=== PATIENT | female | born 1960 | race Caucasian/White ===

== ENCOUNTER → 2017-06-12 17:55 | Outpatient (CLI) | payer BC, SELFPAY ==
--- NOTE | 2017-06-12 18:40 | CT_ITS ---
STUDY: CT ABDOMEN AND PELVIS WITH CONTRAST REASON FOR EXAM: Female, 57 years old. Left lower quadrant pain RADIATION DOSAGE (If Supplied By Facility): CTDIvol = ( 17.07 ) mGy, DLP = ( 1343.02 ) mGycm TECHNIQUE: Transaxial images were obtained from the dome of the diaphragm to the symphysis pubis without oral contrast. 100ML ml of Isovue 300 contrast was administered. Sagittal and coronal images were reconstructed. Individualized dose optimization techniques were used for this CT. COMPARISON: None. FINDINGS: The visualized lung bases are unremarkable. The visualized portions of the heart are within normal limits. Normal liver. Normal gallbladder and extrahepatic biliary system. Normal spleen. Normal pancreas. Normal bilateral adrenal glands. Normal right kidney. Normal left kidney. Normal visualized stomach. Normal small intestine. Focal inflammation of the distal descending colon possibly due to focal colitis or diverticulitis. . The appendix is visualized and appears normal. Normal abdominal aorta. Normal inferior vena cava. Normal retroperitoneum. Normal urinary bladder. Prominent right ovary is noted. Correlate with ultrasound of the pelvis if clinically needed. Normal abdominal wall. Normal osseous structures. CT/Abdomen/Pelvis WITH Contrast IMPRESSION: Focal colitis or diverticulitis of the distal descending colon. Electronically Signed: Yehuda Mckinney DO at 22:50 EST Tel [phone], Service support ,
[2017-06-12 18:57] LABS: AST(SGOT) 22 U/L (15-37); Alanine Aminotransfer ALT/SGPT 44 U/L (13-56); Albumin, Serum 3.7 g/dL (3.2-5.0); Alkaline Phosphatase 100 U/L (45-117); Anion Gap 9 (5-15); BUN 11 mg/dL (7-18); BUN/Creat Ratio 20.8 RATIO (10-20); Chloride 105 mmol/L (98-107); Creatinine, Serum 0.53 mg/dL (0.55-1.02); EST Glomerular Filtration Rate 126 mL/min (>60); Est Glom Filt Rate - Afr Amer 153 mL/min (>60); Globulin 3.6 g/dL (2.2-4.2); Glucose 107 mg/dL (74-106); Potassium 4.1 mmol/L (3.5-5.1); Protein, Total 7.3 g/dL (6.4-8.2); Sodium Level 137 mmol/L (136-145)
[2017-06-12 18:59] LABS: Internal QC Validated? YES +Cl - CLEAR BKGD; Monotest Negative (Negative)
[2017-06-12 19:16] LABS: Absolute Lymphocyte Count 2.49 X10^3/ul (0.83-4.51); Absolute Neutrophil Count 15.4 X10^3/uL (2.0-7.7); Basophil# 0.04 X10^3/uL; Basophil% 0.2 % (0-1); Differential Indicated SCAN CRITERIA MET; Eosinophil# 0.06 X10^3/uL; Eosinophils% 0.3 % (0-5); Hematocrit 40.9 % (37-47); Lymphocyte # 2.49 X10^3/ul (4.0); Lymphocyte % 12.6 % (19-41); Mean Corp Hgb Conc 34.2 g/gl (32-36); Mean Corpuscular Hgb 30.2 pg (27.0-32.0); Mean Corpuscular Volume 88.3 fL (81-99); Mean Platelet Vol. 10.2 fl (6.2-12.0); Monocyte# 1.66 X10^3/uL; Monocyte% 8.4 % (0-10); Neutrophil # 15.42 X10^3/uL (2.7-7.7); POSITIVE COUNT NO; POSITIVE DIFFERENTIAL YES; POSITIVE MORPHOLOGY NO; Platelet Count 276 K/mm3 (150-450); RBC Distribution Width CV 13.8 % (11.6-14.6); RBC Distribution Width SD 43.9 fl (35.1-43.9); Red Blood Count 4.63 M/mm3 (4.2-5.4); White Blood Count 19.8 K/mm3 (4.4-11.0)
[2017-06-12 19:49] LABS: Anisocytosis RARE; Platelet Estimate ADEQUATE (ADEQ); Toxic Granulation RARE
--- NOTE | 2017-06-12 20:50 | RAD_ITS ---
STUDY: X-RAY CHEST REASON FOR EXAM: Female, 57 years old. Fever TECHNIQUE: Frontal and lateral views COMPARISON: March 09, 2017 FINDINGS: The lungs are clear and expanded. There is no demonstrated pleural abnormality. Normal size heart. Normal mediastinum and gregorio. Normal visualized pulmonary arteries. Calcified aortic arch and descending thoracic aorta. Degenerative changes of the thoracic spine. Normal visualized ribs, clavicles, and shoulders. There is no demonstrated abnormality of the visualized soft tissue structures of the upper abdomen. RAD/Chest PA and Lateral IMPRESSION: Normal x-ray examination of the chest. Electronically Signed: Yehuda Mckinney DO at 21:20 EST Tel [phone], Service support ,
[2017-06-13 15:53] LABS: Pathologist Review Reviewed
== END ==
PROVIDERS: Family Provider Family Medicine Geriatric Medicine; PCP Family Medicine Geriatric Medicine; Visit Provider Family Medicine Geriatric Medicine
DX: R10.9 Unspecified abdominal pain (principal); R50.9 Fever, unspecified
CPT/HCPCS: 36415; 71046; 74177; 80053; 85025; 86308; 87040; 87070; 87205; 87633; Q9967

== ENCOUNTER → 2017-08-21 10:05 | Outpatient (CLI) | payer BC, SELFPAY ==
[2017-08-21 12:15] LABS: Absolute Lymphocyte Count 1.96 X10^3/ul (0.83-4.51); Absolute Neutrophil Count 7.9 X10^3/uL (2.0-7.7); Basophil# 0.05 X10^3/uL; Basophil% 0.5 % (0-1); Eosinophil# 0.16 X10^3/uL; Eosinophils% 1.4 % (0-5); Hematocrit 41.3 % (37-47); Lymphocyte # 1.96 X10^3/ul (4.0); Lymphocyte % 17.7 % (19-41); Mean Corp Hgb Conc 33.9 g/gl (32-36); Mean Corpuscular Hgb 30.7 pg (27.0-32.0); Mean Corpuscular Volume 90.6 fL (81-99); Mean Platelet Vol. 10.7 fl (6.2-12.0); Monocyte# 0.91 X10^3/uL; Monocyte% 8.2 % (0-10); Neutrophil # 7.92 X10^3/uL (2.7-7.7); Neutrophil % 71.7 % (47-70); Platelet Count 280 K/mm3 (150-450); RBC Distribution Width CV 13.7 % (11.6-14.6); RBC Distribution Width SD 45.4 fl (35.1-43.9); Red Blood Count 4.56 M/mm3 (4.2-5.4); White Blood Count 11.1 K/mm3 (4.4-11.0)
[2017-08-21 12:27] LABS: POSITIVE COUNT NO; POSITIVE DIFFERENTIAL NO; POSITIVE MORPHOLOGY NO; Vitamin D,25 Hydroxy 49.5 ng/mL (29.95-100.01)
[2017-08-21 12:30] LABS: ALB/GLOB Ratio 1.2 RATIO (0.9-2.4); AST(SGOT) 21 U/L (15-37); Alanine Aminotransfer ALT/SGPT 38 U/L (13-56); Albumin, Serum 3.9 g/dL (3.2-5.0); Alkaline Phosphatase 107 U/L (45-117); Anion Gap 8 (5-15); BUN 12 mg/dL (7-18); BUN/Creat Ratio 18.6 RATIO (10-20); Calcium,Total 8.9 mg/dL (8.5-10.1); Chloride 105 mmol/L (98-107); Creatinine, Serum 0.64 mg/dL (0.55-1.02); EST Glomerular Filtration Rate 100 mL/min (>60); Est Glom Filt Rate - Afr Amer 121 mL/min (>60); Globulin 3.3 g/dL (2.2-4.2); Glucose 97 mg/dL (74-106); Potassium 4.2 mmol/L (3.5-5.1); Protein, Total 7.2 g/dL (6.4-8.2); Sodium Level 139 mmol/L (136-145); Thyroid Stim Hormone (TSH) 1.32 uIU/mL (0.358-3.74)
[2017-08-22 14:06] LABS: Hep C Antibodies <0.1 s/co ratio (0.0-0.9)
== END ==
PROVIDERS: Family Provider Family Medicine Geriatric Medicine; PCP Family Medicine Geriatric Medicine; Visit Provider Family Medicine Geriatric Medicine
DX: Z13.89 Encounter for screening for other disorder (principal); E55.9 Vitamin D deficiency, unspecified; R53.83 Other fatigue
CPT/HCPCS: 36415; 80053; 82306; 84443; 85025; 86803

== ENCOUNTER → 2017-10-12 14:54 | Outpatient (CLI) | payer BC, SELFPAY ==
--- NOTE | 2017-10-12 14:59 | RAD_ITS ---
STUDY: X-RAY - RIGHT FOOT CLINICAL: Female, 57 years old. Pain. TECHNIQUE: 3 view(s) of the foot. COMPARISON: None. FINDINGS: There is a plantar calcaneal spur. Mild degenerative changes of the visualized subtalar, talonavicular, calcaneocuboid, tarsal and tarsometatarsal articulations. Normal metatarsi. There is degenerative arthrosis of the metatarsophalangeal joint of the hallux . Normal tibial and fibular sesamoid bones. Normal interphalangeal joint of the great toe. Normal phalanges of the great toe. Normal second through fifth metatarsophalangeal joints. Normal interphalangeal joints and phalanges of the lesser toes. The soft tissue structures are unremarkable. There is no demonstrated fracture. RAD/Foot min 3 Views IMPRESSION: No acute fracture or dislocation. Electronically Signed: Fernando Roman MD at 15:20 EDT , Service support ,
== END ==
LOC: RAD.FUTURE 14:55
PROVIDERS: Family Provider Family Medicine Geriatric Medicine; PCP Family Medicine Geriatric Medicine; Visit Provider Family Medicine Geriatric Medicine
DX: M25.571 Pain in right ankle and joints of right foot (principal)
CPT/HCPCS: 73630

== ENCOUNTER → 2018-03-01 11:23 | Outpatient (CLI) | payer BC, SELFPAY ==
[2018-03-01 12:39] LABS: Absolute Lymphocyte Count 2.21 X10^3/ul (0.83-4.51); Absolute Neutrophil Count 8.8 X10^3/uL (2.0-7.7); Basophil# 0.04 X10^3/uL; Basophil% 0.3 % (0-1); Eosinophil# 0.16 X10^3/uL; Eosinophils% 1.3 % (0-5); Hematocrit 42.7 % (37-47); Hemoglobin 14.3 g/dl (12.0-15.0); Lymphocyte # 2.21 X10^3/ul (4.0); Mean Corp Hgb Conc 33.5 g/gl (32-36); Mean Corpuscular Hgb 30.5 pg (27.0-32.0); Mean Platelet Vol. 10.9 fl (6.2-12.0); Monocyte# 1.02 X10^3/uL; Monocyte% 8.3 % (0-10); Neutrophil # 8.76 X10^3/uL (2.7-7.7); Neutrophil % 71.5 % (47-70); Platelet Count 290 K/mm3 (150-450); RBC Distribution Width CV 13.3 % (11.6-14.6); RBC Distribution Width SD 43.7 fl (35.1-43.9); Red Blood Count 4.69 M/mm3 (4.2-5.4); White Blood Count 12.3 K/mm3 (4.4-11.0)
[2018-03-01 12:44] LABS: POSITIVE COUNT NO; POSITIVE DIFFERENTIAL NO; POSITIVE MORPHOLOGY NO
[2018-03-01 13:00] LABS: Vitamin D,25 Hydroxy 48.5 ng/mL (29.95-100.01)
[2018-03-01 13:06] LABS: ALB/GLOB Ratio 1.1 RATIO (0.9-2.4); AST(SGOT) 20 U/L (15-37); Alanine Aminotransfer ALT/SGPT 40 U/L (13-56); Albumin, Serum 3.8 g/dL (3.2-5.0); Alkaline Phosphatase 99 U/L (45-117); Anion Gap 9 (5-15); BUN 14 mg/dL (7-18); BUN/Creat Ratio 22.2 RATIO (10-20); Calcium,Total 9.2 mg/dL (8.5-10.1); Chloride 102 mmol/L (98-107); Creatinine, Serum 0.63 mg/dL (0.55-1.02); EST Glomerular Filtration Rate 103 mL/min (>60); Est Glom Filt Rate - Afr Amer 124 mL/min (>60); Globulin 3.5 g/dL (2.2-4.2); Glucose 91 mg/dL (74-106); Potassium 4.6 mmol/L (3.5-5.1); Protein, Total 7.3 g/dL (6.4-8.2); Sodium Level 138 mmol/L (136-145); Thyroid Stim Hormone (TSH) 1.52 uIU/mL (0.358-3.74)
== END ==
PROVIDERS: Family Provider Family Medicine Geriatric Medicine; PCP Family Medicine Geriatric Medicine; Visit Provider Family Medicine Geriatric Medicine
DX: E55.9 Vitamin D deficiency, unspecified (principal); R53.83 Other fatigue
CPT/HCPCS: 36415; 80053; 82306; 84443; 85025

== ENCOUNTER → 2018-04-10 16:17 | Outpatient (CLI) | payer BC, SELFPAY ==
[2017-03-09 18:10] VITALS: BMI 45.8
--- OUTSIDE RECORDS SUMMARY | 2018-05-27 23:33 | XMS RPT_ITS ---
:1960 Author Organization OH[facility] Care Team Providers Name Role Phone HORTENSIA JUAREZ (PA) Attending Unavailable RACHAEL METZ Referring Unavailable HORTENSIA JUAREZ (ASHLEE) Referring Unavailable KITTY YOON Attending Unavailable KITTY YOON Referring Unavailable ANA MONROY Referring Unavailable Gabriele, John Chi Attending Unavailable Gabriele, John Chi Referring Unavailable Gabriele, John Chi Primary Care Unavailable Gabriele, John Chi Attending Unavailable Gabriele, John Chi Primary Care Unavailable Gabriele, John Chi Attending Unavailable Gabriele, John Chi Referring Unavailable Gabriele, John Chi Primary Care Unavailable Gabriele, John Chi Attending Unavailable Gabriele, John Chi Primary Care Unavailable Gabriele, John Chi Attending Unavailable Gabriele, John Chi Primary Care Unavailable PROBLEMS PROBLEMS DATE TYPE CONDITION / CODE ATTENDING STATUS SOURCE 05/03/2018 Active Polyneuropathy, NA Active [facility] unspecified / Main [place] G62.9(ICD-10) Repository 04/19/2018 Active Encounter for NA Active [facility] screening mammogram Other [place] for malignant Repository neoplasm of breast / Z12.31(ICD-10) 04/10/2018 Unknown R68.83 - Chills Gabriele, John Chi Active [facility] (without fever) / Community R68.83(ICD-10) Hospital Repository 10/12/2017 Unknown M79.609 - Pain in Gabriele, John Chi Active [facility] unspecified limb / Community M79.609(ICD-10) Hospital Repository 08/21/2017 Active Mild persistent NA Active [facility] asthma, Main [place] uncomplicated / Repository J45.30(ICD-10) 06/22/2017 Unknown R10.9 - Unspecified Gabriele, John Chi Active [place] abdominal pain / Community R10.9(ICD-10) Hospital Repository PROCEDURES PROCEDURES No Procedure Records FoundRESULTS RESULTS VITAMIN B12 Collected: 05/03/2018 Status: F Source: MATTHEWS 7:[address] [facility] REPOSITORY TYPE CODE TESTS RESULT OUT OF REFERENCE UNITS RANGE LAB B12 232-1245 pg/mL Vitamin B12 841 Performed By: #### B12, HBA1C, COPPER, ANA1, SEPG, MMA #### [facility] [address], [place] [address] #### VITB6 #### [facility] [address] [place] [address] [phone] HEMOGLOBIN A1C Collected: 05/03/2018 Status: F Source: [place]THE[place] 7:[address] [facility] [place] REPOSITORY TYPE CODE TESTS RESULT OUT OF REFERENCE UNITS RANGE LAB HGBA1C 4.3-5.6 % High Hemoglobin A1c 6.1 Result Comment: [place] [employer] guidelines indicate that patients with HgbA1c in the range 5.7-6.4% are at increased risk for development of diabetes, and intervention by lifestyle modification may be beneficial. HgbA1c greater or equal to 6.5% is considered diagnostic of diabetes. LAB HBA0 mg/dL Est. Average Glucose 128 Result Comment: eAG: (Estimated average glucose) is a calculated value from HgbA1c and is national sales representative of the average blood glucose level in the last 2-3 month period. Performed By: #### B12, HBA1C, COPPER, ANA1, SEPG, MMA #### [facility] [address] [place] [phone] #### VITB6 #### [facility] [address], [place] [id number] [phone] COPPER Collected: 05/03/2018 Status: F Source: [place] 7:59 AM [facility] REPOSITORY TYPE CODE TESTS RESULT OUT OF REFERENCE UNITS RANGE LAB COPPER 85-155 ug/dL Copper 107 Result Comment: This test was developed and its performance characteristics determined by [facility] [place] ([facility]). It has not been cleared or approved by the FDA. [facility] is regulated under CLIA as qualified to perform high-complexity testing. This test is used for clinical purposes. It should not be regarded as investigational or for research. Performed By: #### B12, HBA1C, COPPER, ANA1, SEPG, MMA #### [place] [address] [place] [phone] #### VITB6 #### [facility] [address], [place] [id number] [phone] ANTON PANEL 1 Collected: 05/03/2018 Status: F Source: [place] 7:59 [facility] REPOSITORY TYPE CODE TESTS RESULT OUT OF REFERENCE UNITS RANGE LAB ANAQL Negative ANTON Negative by EIA, Qual LAB ANAEIA OD Ratio ANTON 0.9 by EIA Result Comment: OD Ratio is interpreted as follows: Negative <1.0 Positive >=1.0 Performed By: #### B12, HBA1C, COPPER, ANA1, SEPG, MMA #### [facility] [address] [place] [phone] #### VITB6 #### [facility] [address] [place] [address] [phone] PROTEIN ELECTROPHOR. Collected: 05/03/2018 Status: F Source: [place] 7:59 AM [facility] REPOSITORY TYPE CODE TESTS RESULT OUT OF REFERENCE UNITS RANGE LAB TPSPE 6.0-8.4 g/dL Total Protein, SPE 6.7 LAB ALBE 3.37-4.23 gm/dL Albumin 3.89 LAB A1GL 0.18-0.31 gm/dL Alpha 1 Globulin 0.22 LAB A2GL 0.52-0.97 gm/dL Alpha 2 Globulin 0.66 LAB BEGL 0.84-1.36 gm/dL Beta Globulin 0.96 LAB GAGL 0.70-1.44 gm/dL Gamma Globulin 0.98 LAB SPEINT Interpretation SEE COMMENT Result Comment: No definitive M protein is identified on protein electrophoresis. LAB LOC M Protein N/A Location LAB GPERDL 0.00 gm/dL M Rafael 0.00 Concentratn LAB SPESTF SPE Staff Review Reviewed by Seven Lopez M.D. ([id number]) Performed By: #### B12, HBA1C, COPPER, ANA1, SEPG, MMA #### [facility] [address] [place] [id number] #### VITB6 #### [facility] [address] [place] [address] [phone] METHYLMALONIC ACID Collected: 05/03/2018 Status: F Source: [place] 7:59 AM [facility] REPOSITORY TYPE CODE TESTS RESULT OUT OF REFERENCE UNITS RANGE LAB MMA 79-376 nmol/L Methylmalonic Acid 173 Result Comment: This test was developed and its performance characteristics determined by [facility]'s [facility] [place] ([facility]). It has not been cleared or approved by the FDA. [facility] is regulated under CLIA as qualified to perform high-complexity testing. This test is used for clinical purposes. It should not be regarded as investigational or for research. Performed By: #### B12, HBA1C, COPPER, ANA1, SEPG, MMA #### [facility] [address] [place], [place] [address] #### VITB6 #### [facility] [address] [place] [address] [phone] VITAMIN B6 PLASMA Collected: 05/03/2018 Status: F Source: [facility] 7:59 AM [facility] REPOSITORY TYPE CODE TESTS RESULT OUT OF REFERENCE UNITS RANGE LAB VITB6 20.0-125.0 nmol/L Vitamin B6 20.2 Plasma Result Comment: (NOTE) INTERPRETIVE INFORMATION: Vitamin B6 (Pyridoxal 5-Phosphate) Pyridoxal 5'-phosphate measured in a specimen collected following an 8-hour or overnight fast accurately indicates vitamin B6 nutritional status. Non-fasting specimen concentration reflects recent vitamin intake. Test developed and characteristics determined by [facility]. See Compliance Statement B: [email or web address] Performed by [facility], [address] [place] [address] [email or web address], Dwight Lucas MD, Lab. Director Performed By: #### B12, HBA1C, COPPER, ANA1, SEPG, MMA #### [facility] [address] [place], [place] [address] #### VITB6 #### [facility] [address] [place] [address] [phone] CNCO Observed: 04/23/2018 Status: COMPLETED Source: [place] 9:57 AM [facility] REPOSITORY HNO ID: [id number] Author: Mammography Coordinator Service: (none) Author Type: Physician Type: Letter Filed: 04/24/2018 11:31 PM Note Text: April 23, 2018 PID: [id number] Gris Edwards [address] [place] [address] Dear Ms. Edwards, We are pleased to inform you that the results of your recent breast imaging exam on 04/19/2018 are normal. Your mammogram demonstrates that you have dense breast tissue, which could hide abnormalities. Dense breast tissue, in and of itself, is a relatively common condition. Therefore, this information is not provided to cause undue concern; rather, it is to raise your awareness and promote discussion with your health care provider regarding the presence of dense breast tissue in addition to other risk factors. Early detection of cancer is very important. We also understand recommendations regarding breast cancer screening are controversial. Please discuss with your primary care provider which strategy is best for you and whether a mammogram is right for you. Your imaging studies and report will be kept on file at [facility] as part of your permanent medical record and are available for your continuing care. Thank you for allowing us to help in meeting your health care needs. Sincerely, Dr. Guardado Interpreting Radiologist [facility]. (Normal over 40) [facility] SCREENING Observed: 04/19/2018 Status: F Source: MATTHEWS 2:57 PM CLINIC OTHER CAMPUS REPOSITORY * * *Final Report* * * DATE OF EXAM: Apr 19 2018 2:57PM ROBERTO [id number] - [facility] SCREENING / PROCEDURE REASON: Z12.31-Visit for screening mammogram * * * * Physician Interpretation * * * * #[id number] - [facility] SCREENING BILATERAL DIGITAL SCREENING MAMMOGRAM WITH CAD: 04/19/2018 HISTORY: Z12.31-Visit For Screening Mammogram /Screening Mammogram - patient reports NO symptoms. RESULT: TECHNIQUE: The study was acquired using full field digital technology and interpreted from soft copy. Current study was also evaluated with a Computer Aided Detection (CAD). Comparison is made to exams dated: 01/05/2017 mammogram, 08/15/2014 mammogram, 02/07/2014 ultrasound, and 02/07/2014 mammogram - [facility]. The tissue of both breasts is heterogeneously dense. This may lower the sensitivity of mammography. No significant masses, calcifications, or other findings are seen in either breast. There has been no significant interval change. IMPRESSION: There is no mammographic evidence of malignancy. A 1 year screening mammogram is recommended. Leslie esparza/svetlana:04/23/2018 09:57:24 Injection Wax Molder(s): RT Humaira(R)(M), [facility] letter sent: Normal over 40 Mammogram BI-RADS: 1 Negative Multiple national specialty organizations have released breast cancer screening guidelines for women at average risk for developing breast cancer - guidelines that are based on both evidence and opinion, yet differ on when to start and how often to screen for breast cancer. With representation from Breast Imaging, Internal Medicine, Women's Health, Family Medicine, and Medical/Surgical Oncology, the [facility] has carefully reviewed the data and reached the following consensus: 1) All women should engage in shared decision-making with their providers to decide when to start and how often to screen; 2) All women should have the opportunity to start screening mammography at age 40; 3) For women ages 45-55, we recommend annual screening mammograms; 4) For women ages 55 and over, we support both the transition from an annual to a biennial interval if this aligns more with patient's values and preferences, or continuation with annual screening; 5) All women should discuss with their providers when to stop screening mammograms. Grounds Foreman: Svetlana Transcribe Date/Time: Apr 19 2018 2:46P Dictated by : LESLIE GUARDADO DO This examination was interpreted and the report reviewed and electronically signed by: LESLIE GUARDADO DO on Apr 23 2018 9:57AM EST [id number] PROGRESS Observed: 04/19/2018 Status: COMPLETED Source: [place] 8:28 AM [facility] REPOSITORY HNO ID: [id number] Author: Karon (Rn) AUSTIN Martinez Service: (none) Author Type: Registered Nurse Type: Progress Notes Filed: 04/29/2018 10:51 PM Note Text: [facility] MULTIPLE SCLEROSIS NEW PATIENT EVALUATION/CONSULTATION Referral source: SELF Also followed by: John Suazo MD [address] [address] PRINCIPAL NEUROLOGIC DIAGNOSIS: Abnormal gait, worry about MS DISEASE SUMMARY Date of onset: 2014 Date of diagnosis of MS: NA Most recent MRI brain: not done Most recent MRI cervical spine: not done CSF: not done HISTORY OF ILLNESS: An opinion on this 58-year-old right handed woman was requested by the patient for possible MS. The patient was unaccompanied to the visit. Previous records (physician notes, laboratory reports, and radiology reports) and imaging studies were reviewed and summarized. My recommendations will be communicated back to the patient's physician(s) via electronic medical record. Follow-up is expected to be with me or the referring physician based on results of planned workup. Gris had migraines as a kid. She recalled seeing a [place] [place] was very young. She was marcia to manage these by being aware of her triggers--emotional extremes. In 1999, she had an episode of severe dizziness in which she fell to the floor immediately after standing up. She stayed in bed all day. In 2014 she thought she was narcoleptic. She couldn't stay awake. She was able to manage this while she worked from home and could work any hours. She struggled when she left that job and went back to the traditional workforce. She recalled another episode of severe headache and dizziness in 2016. She couldn't get up and stayed in bed all day Gris described progressive accumulation of several symptoms that have her worried about MS, ALS, or Parkinson's disease: 1. Legs cramp. Severe toe cramps. Can't even stand and walk after these episodes. 2. Electrical kind of feeling if she moves to scoot herself 3. Chin tremors right before she yawns 4. Hands fall asleep more frequently 5. Blurred vision. New Rx temporarily helps 6. Bumps into everything. Misjudges hair and corners 7. Legs feel funny when she is walking 8. Intermittent trouble swallowing 9. Severe fatigue despite CPAP 10. Sudden foot pain like a fracture 11. Hands go to sleep with prolonged use (like holding flip phone)--over last 6 months 12. Does events at work but has severe pain and overstimulation of nerves after physical activity 13. Hammering in the left side of her head when trying to sleep 14. Urinary frequency. Wears pads. Incontinence when she sneezes or coughs. Burning/overstimulaiton when she pees. Pyridium helps. Bowels regular. PAST HISTORY: PAST MEDICAL HISTORY Diagnosis Date - Asthma - Breast mass, right 01/2014 - Bronchitis - Diverticulitis - Obesity - Obstructive sleep apnea - Pulmonary hypertension (HCC) PAST SURGICAL HISTORY Procedure Laterality Date - COLONOSCOPY AND POLYPECTOMY 2013 Dr. Muller - MAMMOTOME BIOPSY RIGHT 02/11/2013 - TOTAL KNEE REPLACEMENT 07/20/11 Knee replacement, total bilateral Transfusions: None Current Outpatient Prescriptions: benzonatate (TESSALON PERLES) 100 mg capsule Take 2 capsules by mouth three times daily as needed. cefdinir (OMNICEF) 300 mg capsule Take 300 mg by mouth twice daily. codeine-guaiFENesin (GUAIFENESIN AC) 10-100 mg/5 mL syrup Take 5 mL by mouth at bedtime as needed. ERGOCALCIFEROL, VITAMIN D2, 50,000 unit capsule once each week. lisinopril-hydrochlorothiazide (PRINZIDE,ZESTORETIC) 20-12.5 mg per tablet Take 1 tablet by mouth once daily. mometasone-formoterol (DULERA) 200-5 mcg/actuation inhaler Inhale 2 Puffs as instructed twice daily. trimethoprim-polymyxin eye drops (POLYTRIM) ophthalmic solution Use 1 Drop in the left eye every 4 hours. albuterol HFA (PROAIR HFA) 90 mcg/actuation inhaler 2 Puffs every 4 hours as needed. Take as directed (Patient not taking: Reported on 11/29/2017 ) albuterol HFA (PROAIR HFA) 90 mcg/actuation inhaler Inhale 2 Puffs as instructed every 6 hours as needed. (Patient not taking: Reported on 04/19/2018 ) aspirin, enteric coated (ASPIRIN, ENTERIC COATED) 81 mg EC tablet Take 81 mg by mouth once daily. COMPOUNDED PRESCRIPTION Please provide new tubing for CPAP machine. loratadine (CLARITIN) 10 mg tablet Take 1 tablet by mouth once daily as needed. FOR ALLERGY SYMPTOMS (Patient not taking: Reported on 11/29/2017 ) montelukast (SINGULAIR) 10 mg tablet Take 1 tablet by mouth daily at bedtime. (Patient not taking: Reported on 11/29/2017 ) Omeprazole (PRILOSEC) 40 mg capsule Take 1 capsule by mouth once daily. (Patient not taking: Reported on 04/19/2018 ) No current facility-administered medications for this visit. ALLERGIES Allergen Reactions - Latex Rash - Triclosan (Bulk) Hives Social History: Works full time paramedic. . Never smoker. No alcohol. Not exercising. FAMILY HISTORY Problem Relation Age of Onset - Thyroid Mother - Diabetes Maternal Grandmother - Stroke Maternal Grandmother - Diabetes Maternal Grandfather - Stroke Maternal Grandfather - Heart Father - Stroke Father - Stroke Paternal Grandfather - Colon Cancer Sister REVIEW OF SYSTEMS: Comprehensive review of systems otherwise was negative, including constitutional, head and neck, cardiovascular, pulmonary, gastrointestinal, endocrine, urologic, reproductive, rheumatic, hematologic, immunologic, dermatologic, and psychiatric. Nutritional concerns: None Driving issues: None Safety concerns regarding living situations and safety at home: None Risk of falls: See HPI Pain: See HPI PHYSICAL EXAM: BP 153/67 (BP Site: Left Arm, BP Position: Sitting, BP Cuff Size: Extra Large Adult) Pulse 72 Ht 167.6 cm (5' 6) Wt 123.6 kg (272 lb 6.4 oz) BMI 43.97 kg/m? Well-groomed, pleasant woman appeared comfortable. Hair, skin, nails, and joints were normal except for bruises on forearms and shins. Neck was supple without Lhermitte's phenomenon. Heart was regular with no murmurs. Lungs were clear to auscultation bilaterally. There was no peripheral edema. The patient was alert and oriented to person, place, and time with normal language, attention and concentration, recent and remote memory, praxis, and intellectual function. Affect was normal. The patient did not appear depressed. Visual acuity to near card was as follows: OD= 20/30 (with correction) OS= 20/30 (with correction). Visual askew were full to confrontation. Pupils were 3.5 mm and briskly reactive OU without a relative afferent pupillary defect. Funduscopic examination was normal without disc edema, erythema, or atrophy. Ocular ductions were full without nystagmus or ataxia. Facial sensation was normal. Muscles of mastication and facial expression moved normally. Hearing was normal. Palatal movements were normal. Sternocleidomastoid and trapezius power were normal. Tongue movements were normal. There was no dysarthria. Motor Examination: There was no pronator drift. There was a fine tremor of all fingers when hands were outstretched. This was not apparent with action. Right Upper Extremity: Left Upper Extremity: Deltoid 5/5 Deltoid 5/5 Biceps 5/5 Biceps 5/5 Triceps 5/5 Triceps 5/5 Finger extensors 5/5 Finger extensors 5/5 Finger flexors 5/5 Finger flexors 5/5 Dorsal interossei 5/5 Dorsal interossei 5/5 Abductor pollicis 5/5 Abductor pollicis 5/5 Tone (Nickie scale) 0 Tone (Nickie scale) 0 Right Lower Extremity: Left Lower Extremity: Hip flexors 5/5 Hip flexors 5/5 Hip extensors 5/5 Hip extensors 5/5 Knee flexors 5/5 Knee flexors 5/5 Knee extensors 5/5 Knee extensors 5/5 Dorsiflexors 5/5 Dorsiflexors 5/5 Plantarflexors 5/5 Plantarflexors 5/5 Tone (Nickie scale) 0 Tone (Nickie scale) 0 Reflexes: brachioradialis ++ brachioradialis ++ biceps ++ biceps ++ triceps ++ triceps ++ patellar + patellar + Achilles + Achilles + plantar response down plantar response down Coordination testing in the arms and legs was performed including [id number], rapid-alternating, and fine movements. Rapid movements were smooth with good alysha and there was no dysmetria or ataxia. No signs of cerebellar dysfunction. Sensory examination: Pin prick: No sensory level posteriorly. Decreased in feet and lower legs (patchy, not dermatomal) compared to hands. Vibration: Decreased in bilateral lower extremities to the knees. Proprioception: Normal bilateral lower extremities. Romberg's test was abnormal. Unchallenged gait was slightly wide-based and cautious. She could toe and heel walk but could not tandem. REVIEW OF OUTSIDE RECORDS: None available REVIEW OF IMAGING STUDIES: I personally reviewed the following images: None available ASSESSMENT: This 58-year-old woman with pulmonary hypertension, asthma, RAKNA, and a long history of migraine headaches describes episodes of dizziness as well as progressive imbalance, exercise intolerance, fatigue, and cramping. Her exam shows decreased vibration in both lower extremities as well as decreased reflexes. She was reassured that there were no findings on exam to suggest a diagnosis of Parkinson's disease or ALS. Her exam is more suggestive of peripheral rather than central nervous system dysfunction. Thus, we will start with an evaluation for neuropathy as well as PT to help prevent falls. PLAN: 1. Labs for reversible causes of neuropathy: HgbA1C, B12, B6, copper, methylmalonic acid, SPEP, ATNON. She wants to check her records at home before I order these. If not done by her PCP, I can order these for her to have done at [facility] 2. Physical therapy for fall prevention, gait retraining. Written Rx provided for her to have this done locally 3. EMG/NCS RTC in about 2 months. I spent 60 minutes in this visit, with >50% direct patient time spent counseling about prognosis, treatment options, and coordination of care. Kitty Yoon MD Staff Neurologist [facility] CNOV Observed: 04/19/2018 Status: COMPLETED Source: MAT[place]WS 8:10 AM [facility] REPOSITORY Office Visit (NEMEFV) GRIS EDWARDS ([id number]) 1960 F Date Time Provider Department 04/19/18 8:10 AM KITTY YOON [facility] During your visit today, we recorded the following information about you: Pulse Blood pressure Weight Height 72/minute 153/67 123.6 kg 1.676 m Karon Martinez RN, RN 04/19/2018 8:45 AM [facility] MULTIPLE SCLEROSIS NEW PATIENT EVALUATION/CONSULTATION Referral source: SELF Also followed by: John Suazo MD [address] [address] PRINCIPAL NEUROLOGIC DIAGNOSIS: Abnormal gait, worry about MS DISEASE SUMMARY Date of onset: 2014 Date of diagnosis of MS: NA Most recent MRI brain: not done Most recent MRI cervical spine: not done CSF: not done HISTORY OF ILLNESS: An opinion on this 58-year-old right handed woman was requested by the patient for possible MS. The patient was unaccompanied to the visit. Previous records (physician notes, laboratory reports, and radiology reports) and imaging studies were reviewed and summarized. My recommendations will be communicated back to the patient's physician(s) via electronic medical record. Follow-up is expected to be with me or the referring physician based on results of planned workup. Gris had migraines as a kid. She recalled seeing a [place] [place] was [place]. She was marcia to manage these by being aware of her triggers--emotional extremes. In 1999, she had an episode of severe dizziness in which she fell to the floor immediately after standing up. She stayed in bed all day. In 2014 she thought she was narcoleptic. She couldn't stay awake. She was able to manage this while she worked from home and could work any hours. She struggled when she left that job and went back to the traditional workforce. She recalled another episode of severe headache and dizziness in 2015. She couldn't get up and stayed in bed all day Gris described progressive accumulation of several symptoms that have her worried about MS, ALS, or Parkinson's disease: 1. Legs cramp. Severe toe cramps. Can't even stand and walk after these episodes. 2. Electrical kind of feeling if she moves to scoot herself 3. Chin tremors right before she yawns 4. Hands fall asleep more frequently 5. Blurred vision. New Rx temporarily helps 6. Bumps into everything. Misjudges hair and corners 7. Legs feel funny when she is walking 8. Intermittent trouble swallowing 9. Severe fatigue despite CPAP 10. Sudden foot pain like a fracture 11. Hands go to sleep with prolonged use (like holding flip phone)--over last 6 months 12. Does events at work but has severe pain and overstimulation of nerves after physical activity 13. Hammering in the left side of her head when trying to sleep 14. Urinary frequency. Wears pads. Incontinence when she sneezes or coughs. Burning/overstimulaiton when she pees. Pyridium helps. Bowels regular. PAST HISTORY: PAST MEDICAL HISTORY Diagnosis Date - Asthma - Breast mass, right 01/2014 - Bronchitis - Diverticulitis - Obesity - Obstructive sleep apnea - Pulmonary hypertension (HCC) PAST SURGICAL HISTORY Procedure Laterality Date - COLONOSCOPY AND POLYPECTOMY 2013 Dr. Muller - MAMMOTOME BIOPSY RIGHT 02/11/2013 - TOTAL KNEE REPLACEMENT 07/20/11 Knee replacement, total bilateral Transfusions: None Current Outpatient Prescriptions: benzonatate (TESSALON PERLES) 100 mg capsule Take 2 capsules by mouth three times daily as needed. cefdinir (OMNICEF) 300 mg capsule Take 300 mg by mouth twice daily. codeine-guaiFENesin (GUAIFENESIN AC) 10-100 mg/5 mL syrup Take 5 mL by mouth at bedtime as needed. ERGOCALCIFEROL, VITAMIN D2, 50,000 unit capsule once each week. lisinopril-hydrochlorothiazide (PRINZIDE,ZESTORETIC) 20-12.5 mg per tablet Take 1 tablet by mouth once daily. mometasone-formoterol (DULERA) 200-5 mcg/actuation inhaler Inhale 2 Puffs as instructed twice daily. trimethoprim-polymyxin eye drops (POLYTRIM) ophthalmic solution Use 1 Drop in the left eye every 4 hours. albuterol HFA (PROAIR HFA) 90 mcg/actuation inhaler 2 Puffs every 4 hours as needed. Take as directed (Patient not taking: Reported on 11/29/2017 ) albuterol HFA (PROAIR HFA) 90 mcg/actuation inhaler Inhale 2 Puffs as instructed every 6 hours as needed. (Patient not taking: Reported on 04/19/2018 ) aspirin, enteric coated (ASPIRIN, ENTERIC COATED) 81 mg EC tablet Take 81 mg by mouth once daily. COMPOUNDED PRESCRIPTION Please provide new tubing for CPAP machine. loratadine (CLARITIN) 10 mg tablet Take 1 tablet by mouth once daily as needed. FOR ALLERGY SYMPTOMS (Patient not taking: Reported on 11/29/2017 ) montelukast (SINGULAIR) 10 mg tablet Take 1 tablet by mouth daily at bedtime. (Patient not taking: Reported on 11/29/2017 ) Omeprazole (PRILOSEC) 40 mg capsule Take 1 capsule by mouth once daily. (Patient not taking: Reported on 04/19/2018 ) No current facility-administered medications for this visit. ALLERGIES Allergen Reactions - Latex Rash - Triclosan (Bulk) Hives Social History: Works full time paramedic. . Never smoker. No alcohol. Not exercising. FAMILY HISTORY Problem Relation Age of Onset - Thyroid Mother - Diabetes Maternal Grandmother - Stroke Maternal Grandmother - Diabetes Maternal Grandfather - Stroke Maternal Grandfather - Heart Father - Stroke Father - Stroke Paternal Grandfather - Colon Cancer Sister REVIEW OF SYSTEMS: Comprehensive review of systems otherwise was negative, including constitutional, head and neck, cardiovascular, pulmonary, gastrointestinal, endocrine, urologic, reproductive, rheumatic, hematologic, immunologic, dermatologic, and psychiatric. Nutritional concerns: None Driving issues: None Safety concerns regarding living situations and safety at home: None Risk of falls: See HPI Pain: See HPI PHYSICAL EXAM: BP 153/67 (BP Site: Left Arm, BP Position: Sitting, BP Cuff Size: Extra Large Adult) Pulse 72 Ht 167.6 cm (5' 6) Wt 123.6 kg (272 lb 6.4 oz) BMI 43.97 kg/m? Well-groomed, pleasant woman appeared comfortable. Hair, skin, nails, and joints were normal except for bruises on forearms and shins. Neck was supple without Lhermitte's phenomenon. Heart was regular with no murmurs. Lungs were clear to auscultation bilaterally. There was no peripheral edema. The patient was alert and oriented to person, place, and time with normal language, attention and concentration, recent and remote memory, praxis, and intellectual function. Affect was normal. The patient did not appear depressed. Visual acuity to near card was as follows: OD= 20/30 (with correction) OS= 20/30 (with correction). Visual askew were full to confrontation. Pupils were 3.5 mm and briskly reactive OU without a relative afferent pupillary defect. Funduscopic examination was normal without disc edema, erythema, or atrophy. Ocular ductions were full without nystagmus or ataxia. Facial sensation was normal. Muscles of mastication and facial expression moved normally. Hearing was normal. Palatal movements were normal. Sternocleidomastoid and trapezius power were normal. Tongue movements were normal. There was no dysarthria. Motor Examination: There was no pronator drift. There was a fine tremor of all fingers when hands were outstretched. This was not apparent with action. Right Upper Extremity: Left Upper Extremity: Deltoid 5/5 Deltoid 5/5 Biceps 5/5 Biceps 5/5 Triceps 5/5 Triceps 5/5 Finger extensors 5/5 Finger extensors 5/5 Finger flexors 5/5 Finger flexors 5/5 Dorsal interossei 5/5 Dorsal interossei 5/5 Abductor pollicis 5/5 Abductor pollicis 5/5 Tone (Nickie scale) 0 Tone (Nickie scale) 0 Right Lower Extremity: Left Lower Extremity: Hip flexors 5/5 Hip flexors 5/5 Hip extensors 5/5 Hip extensors 5/5 Knee flexors 5/5 Knee flexors 5/5 Knee extensors 5/5 Knee extensors 5/5 Dorsiflexors 5/5 Dorsiflexors 5/5 Plantarflexors 5/5 Plantarflexors 5/5 Tone (Nickie scale) 0 Tone (Nickie scale) 0 Reflexes: brachioradialis ++ brachioradialis ++ biceps ++ biceps ++ triceps ++ triceps ++ patellar + patellar + Achilles + Achilles + plantar response down plantar response down Coordination testing in the arms and legs was performed including [id number], rapid-alternating, and fine movements. Rapid movements were smooth with good alysha and there was no dysmetria or ataxia. No signs of cerebellar dysfunction. Sensory examination: Pin prick: No sensory level posteriorly. Decreased in feet and lower legs (patchy, not dermatomal) compared to hands. Vibration: Decreased in bilateral lower extremities to the knees. Proprioception: Normal bilateral lower extremities. Romberg's test was abnormal. Unchallenged gait was slightly wide-based and cautious. She could toe and heel walk but could not tandem. REVIEW OF OUTSIDE RECORDS: None available REVIEW OF IMAGING STUDIES: I personally reviewed the following images: None available ASSESSMENT: This 58-year-old woman with pulmonary hypertension, asthma, RAKAN, and a long history of migraine headaches describes episodes of dizziness as well as progressive imbalance, exercise intolerance, fatigue, and cramping. Her exam shows decreased vibration in both lower extremities as well as decreased reflexes. She was reassured that there were no findings on exam to suggest a diagnosis of Parkinson's disease or ALS. Her exam is more suggestive of peripheral rather than central nervous system dysfunction. Thus, we will start with an evaluation for neuropathy as well as PT to help prevent falls. PLAN: 1. Labs for reversible causes of neuropathy: HgbA1C, B12, B6, copper, methylmalonic acid, SPEP, ANTON. She wants to check her records at home before I order these. If not done by her PCP, I can order these for her to have done at [place] 2. Physical therapy for fall prevention, gait retraining. Written Rx provided for her to have this done locally 3. EMG/NCS RTC in about 2 months. I spent 60 minutes in this visit, with >50% direct patient time spent counseling about prognosis, treatment options, and coordination of care. Kitty Yoon MD Staff Neurologist [facility] Kitty Yoon MD 04/19/2018 9:29 AM Signed We are looking for the following labs: HgbA1C, B12, B6, copper, methylmalonic acid, SPEP, ANTON Please take a look at your records at home and let me know if you have had these tests done. If not, I will order them to be done at [facility] or [facility]. Kitty Yoon MD Referring Provider: SELF [200] Allergies As of Date: 04/19/2018 Noted Allergy Reaction LATEX 02/20/2017 2 - Rash TRICLOSAN (BULK) 08/26/2013 4 - Hives Date Reviewed: 04/19/2018 Reviewed by: Karon HuangRn) AUSTIN Martinez - Fully Assessed Reason for Visit: New Patient Evaluation [154] Primary Visit Diagnosis:Polyneuropathy (HCC) [G62.9] Other Visit Diagnoses:Malaise and fatigue [R53.81, R53.83] Abnormality of gait [R26.9] Falls frequently [R29.6] Order(s):EMG(NEURO/NI) [20100730] Order #: [id number]: 1 FUTURE Prescriptions as of 04/19/2018 Sig: BENZONATATE 100 MG CAPSULE Take 2 capsules by mouth thre* CEFDINIR 300 MG CAPSULE Take 300 mg by mouth twice da* CODEINE 10 MG-GUAIFENESIN 100* Take 5 mL by mouth at bedtime* ERGOCALCIFEROL (VITAMIN D2) 5* once each week. LISINOPRIL 20 MG-HYDROCHLOROT* Take 1 tablet by mouth once d* MOMETASONE-FORMOTEROL HFA 200* Inhale 2 Puffs as instructed * POLYMYXIN B SULFATE 10,000 UN* Use 1 Drop in the left eye ev* ALBUTEROL SULFATE HFA 90 MCG/* 2 Puffs every 4 hours as need* Patient not taking: Reported on 11/29/2017 ALBUTEROL SULFATE HFA 90 MCG/* Inhale 2 Puffs as instructed * Patient not taking: Reported on 04/19/2018 ASPIRIN 81 MG TABLET,DELAYED * Take 81 mg by mouth once tommy* COMPOUNDED PRESCRIPTION Please provide new tubing for* LORATADINE 10 MG TABLET Take 1 tablet by mouth once d* Patient not taking: Reported on 11/29/2017 MONTELUKAST 10 MG TABLET Take 1 tablet by mouth daily * Patient not taking: Reported on 11/29/2017 OMEPRAZOLE 40 MG CAPSULE,RICHI* Take 1 capsule by mouth once * Patient not taking: Reported on 04/19/2018 Problem List As Of Date 04/19/2018 Noted Resolved Knee pain, bilateral [M25.561, M25.562] INVALID FOR*07/24/2011 Degenerative arthritis of knee [M17.10] INVALID FOR*07/24/2011 Tachycardia [R00.0] INVALID FOR*07/24/2011 Anemia associated with acute blood loss [D62] INVALID FOR*07/24/2011 Osteoarthritis (arthritis due to wear and tear *INVALID FOR* S/P total knee replacement using cement [Z96.65*INVALID FOR* Breast mass [N63.0] INVALID FOR* Trochanteric bursitis [M70.60] INVALID FOR* Obesity, Class III, BMI >= 40 (morbid obesity) *INVALID FOR* Asthma [J45.909] Obstructive sleep apnea [G47.33] Other instructions from your clinician: We are looking for the following labs: HgbA1C, B12, B6, copper, methylmalonic acid, SPEP, ANTON Please take a look at your records at home and let me know if you have had these tests done. If not, I will order them to be done at [facility] or [facility]. Kitty Yoon MD Disposition: Return in about 2 months (around 06/20/2018) for yi yoon or kandy/abimbola. Follow-up and Disposition History Recorded Encounter Status:Closed by KITTY YOON MD on 04/29/18 Observed: 04/10/2018 Status: F Source: [place] RESPIRATORY PANEL 4:28 PM [facility] MOLECULAR REPOSITORY RP PANEL Normal Reference Range = Not Detected ADENOVIRUS Not Detected HUMAN METAPHNEUMO Not Detected INFLUENZA A Not Detected INFLUENZA A (SUBTYPE H1) Not Detected INFLUENZA A (SUBTYPE H3) Not Detected INFLUENZA B Not Detected PARAINFLUENZA 1 Not Detected PARAINFLUENZA 2 Not Detected PARAINFLUENZA 3 Not Detected PARAINFLUENZA 4 Not Detected RHINOVIRUS Not Detected RSV A Not Detected RSV B Not Detected NAAT METHOD Testing was performed using nucleic acid amplification Performed By: #### M100.638 #### [facility] [address], [address] CBC W/DIFF, AUTOMATED Collected: 03/01/2018 Status: F Source: [place] 11:24 AM [facility] REPOSITORY TYPE CODE TESTS RESULT OUT OF RANGE REFERENCE UNITS LAB L100.1000 4.4-11.0 K/mm3 High WBC 12.3 LAB L100.1200 4.2-5.4 M/mm3 Normal RBC 4.69 LAB L100.1300 12.0-15.0 g/dl Normal HGB 14.3 LAB L100.1400 37-47 % Normal HCT 42.7 LAB L100.1500 81-99 fL Normal MCV 91.0 LAB L100.1600 27.0-32.0 pg Normal MCH 30.5 LAB L100.1700 32-36 g/gl Normal MCHC 33.5 LAB L100.1810 11.6-14.6 % Normal RDW CV 13.3 LAB L100.1820 35.1-43.9 fl Normal RDW SD 43.7 LAB L100.1900 150-450 K/mm3 Normal PLT 290 LAB L100.2000 6.2-12.0 fl Normal MPV 10.9 LAB L100.2100 47-70 % High NEUT% 71.5 LAB L100.2200 19-41 % Low LY% 18.0 LAB L100.2300 0-10 % Normal MONO% 8.3 LAB L100.2400 0-5 % Normal EO% 1.3 LAB L100.2500 0-1 % Normal BASO% 0.3 LAB L100.2550 0.0-0.9 % Normal IM GRAN % 0.600 Result Comment: IG% - Immature Granulocytes (promyelocytes, myelocytes and metamyelocytes) > 1% indicates that a LEFT SHIFT is Present. LAB L100.2620 2.0-7.7 X10 3/uL High Absolute Neut 8.8 LAB L100.2720 0.83-4.51 X10 3/ul Normal Absolute Lymph 2.21 Performed By: #### L100.0100 #### [facility] [place], [place], [address] VITAMIN D,25 HYDROXY Collected: 03/01/2018 Status: F Source: [place] 11:24 AM [facility] REPOSITORY TYPE CODE TESTS RESULT OUT OF RANGE REFERENCE UNITS LAB L506.1000 29.95-100.01 ng/mL Normal Vitamin D 48.5 25-OH Result Comment: Vitamin D 25(OH) Status Range Deficiency <20 ng/mL (50nmol/L) Insuffciency 20 - 30 ng/mL (50 - 75 nmol/L) Sufficiency 30 - 100 ng/mL (75 - 250 nmol/L) Toxicity >100 ng/mL (>250 nmol/L) Performed By: #### L506.1000 #### [facility] [address] [facility]. [place], [place], [address] COMPREHENSIVE METABOLIC Collected: 03/01/2018 Status: F Source: [place] PROFIL 11:24 AM [facility] REPOSITORY TYPE CODE TESTS RESULT OUT OF RANGE REFERENCE UNITS LAB L501.0100 74-106 mg/dL Normal GLU 91 Result Comment: Please note revised GLUCOSE reference range effective 2017. LAB L501.1000 7-18 mg/dL Normal BUN 14 LAB L501.1100 0.55-1.02 mg/dL Normal CREAT,SERUM 0.63 Result Comment: The validity of the calculated GFR AND GFRAA in patients over 70 years has not been determined. Clinical correlation is essential. LAB L501.1110 >60 mL/min Normal EST GFR 103 Result Comment: Non- GFR Calc LAB L501.1115 >60 mL/min Normal EST GFR - AA 124 Result Comment: GFR Calc LAB L501.1300 10-20 RATIO High BUN/CRE 22.2 LAB L501.1500 6.4-8.2 g/dL T Normal PROT 7.3 LAB L501.1800 3.2-5.0 g/dL Normal ALB 3.8 LAB L501.1950 2.2-4.2 g/dL Normal GLOB 3.5 LAB L501.2000 0.9-2.4 RATIO Normal A/G 1.1 LAB L501.2200 8.5-10.1 mg/dL CA Normal 9.2 LAB L501.4100 15-37 U/L Normal AST 20 LAB L501.4305 45-117 U/L Normal ALK P 99 LAB L501.4405 13-56 U/L Normal ALT 40 LAB L501.4600 0.20-1.00 mg/dL T Normal BILI 0.50 LAB L501.5300 136-145 mmol/L NA Normal 138 LAB L501.5600 3.5-5.1 mmol/L K Normal 4.6 LAB L501.5900 98-107 mmol/L CL Normal 102 LAB L501.6100 21.0-32.0 mmol/L Normal CO2 27.0 LAB L501.6200 5-15 Normal GAP 9 Performed By: #### L500.4050, L501.9520 #### [facility] [address] [place], [place], [address] THYROID STIM HORMONE Collected: 03/01/2018 Status: F Source: [place] ([facility]) 11:24 AM [facility] REPOSITORY TYPE CODE TESTS RESULT OUT OF RANGE REFERENCE UNITS LAB L501.9520 0.358-3.74 uIU/mL Normal TSH 1.52 Performed By: #### L500.4050, L501.9520 #### [facility] [address] [place], [address] PROGRESS Observed: 12/04/2017 Status: COMPLETED Source: [place] 2:[address] [facility] [place] REPOSITORY HNO ID: [id number] Author: Chhaya Balderas) Andrzej Service: (none) Author Type: Physician News Specialist Type: Progress Notes Filed: 12/04/2017 4:12 PM Note Text: Subjective HPI Pt presents with cough and congestion for 9 days. She was seen here and placed on prednisone and tessalon. She is still having a productive cough. She also has left eye drainage for 2 days. 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 Review of Systems Constitutional: Negative for chills and fever. HENT: Positive for congestion. Eyes: Negative. Respiratory: Positive for cough and sputum production. Cardiovascular: Negative. Skin: Negative. All other systems reviewed and are negative. PAST MEDICAL HISTORY Diagnosis Date - Asthma - Breast mass, right 01/2014 - Diverticulitis - Obstructive sleep apnea - Pulmonary hypertension (HCC) - Sleep apnea Current Outpatient Prescriptions: benzonatate (TESSALON PERLES) 100 mg capsule Take 2 capsules by mouth three times daily as needed. Disp: 30 capsule Rfl: 0 lisinopril-hydrochlorothiazide (PRINZIDE,ZESTORETIC) 20-12.5 mg per tablet Take 1 tablet by mouth once daily. Disp: Rfl: mometasone-formoterol (DULERA) 200-5 mcg/actuation inhaler Inhale 2 Puffs as instructed twice daily. Disp: 1 Inhaler Rfl: 3 Omeprazole (PRILOSEC) 40 mg capsule Take 1 capsule by mouth once daily. Disp: 30 capsule Rfl: 3 COMPOUNDED PRESCRIPTION Please provide new tubing for CPAP machine. Disp: 1 Each Rfl: 0 aspirin, enteric coated (ASPIRIN, ENTERIC COATED) 81 mg EC tablet Take 81 mg by mouth once daily. Disp: Rfl: ERGOCALCIFEROL, VITAMIN D2, 50,000 unit capsule once each week. Disp: Rfl: predniSONE (DELTASONE) 20 mg tablet Take 1 tablet by mouth twice daily for 5 days. (Patient not taking: Reported on 12/04/2017 ) Disp: 10 tablet Rfl: 0 loratadine (CLARITIN) 10 mg tablet Take 1 tablet by mouth once daily as needed. FOR ALLERGY SYMPTOMS (Patient not taking: Reported on 11/29/2017 ) Disp: Rfl: montelukast (SINGULAIR) 10 mg tablet Take 1 tablet by mouth daily at bedtime. (Patient not taking: Reported on 11/29/2017 ) Disp: 30 tablet Rfl: 3 albuterol HFA (PROAIR HFA) 90 mcg/actuation inhaler 2 Puffs every 4 hours as needed. Take as directed (Patient not taking: Reported on 11/29/2017 ) Disp: 1 Inhaler Rfl: 3 No current facility-administered medications for this visit. PAST SURGICAL HISTORY Procedure Laterality Date - COLONOSCOPY AND POLYPECTOMY 2013 Dr. Muller - MAMMOTOME BIOPSY RIGHT 02/11/2013 - TOTAL KNEE REPLACEMENT 07/20/11 Knee replacement, total bilateral FAMILY HISTORY Problem Relation Age of Onset - Thyroid Mother - Diabetes Maternal Grandmother - Stroke Maternal Grandmother - Diabetes Maternal Grandfather - Stroke Maternal Grandfather - Heart Father - Stroke Father - Stroke Paternal Grandfather - Colon Cancer Sister Social History Substance Use Topics - Smoking status: Never Smoker - Smokeless tobacco: Never Used Comment: father smoked cigars in childhood home. - Alcohol use No BP 120/70 Pulse 78 Temp 36.3 ?C (97.4 ?F) (Tympanic) Resp 16 Wt 122.9 kg (271 lb) SpO2 95% BMI 47.30 kg/m? Objective Physical Exam Constitutional: She is oriented to person, place, and time and well-developed, well-nourished, and in no distress. HENT: Head: Normocephalic and atraumatic. Right Ear: Tympanic membrane, external ear and ear canal normal. Left Ear: Tympanic membrane, external ear and ear canal normal. Nose: Mucosal edema and rhinorrhea present. Mouth/Throat: Uvula is midline, oropharynx is clear and moist and mucous membranes are normal. Hoarse voice Eyes: Lids are normal. Lids are everted and swept, no foreign bodies found. Pt has clear discharge from left conjunctiva, mild erythema and swelling. No FB. No signs of orbital or periorbital cellulitis. Cardiovascular: Normal rate, regular rhythm and normal heart sounds. Pulmonary/Chest: Effort normal and breath sounds normal. No respiratory distress. She has no wheezes. She has no rales. Neurological: She is alert and oriented to person, place, and time. Skin: Skin is warm. No rash noted. Psychiatric: Affect and judgment normal. Nursing note and vitals reviewed. ASSESSMENT/PLAN: 1. Acute bronchitis, unspecified organism - ICD9: 466.0, ICD10: J20.9 (primary diagnosis) Will treat with zpak. She has tessalon still at home. Pt in no distress. Discussed with patient concerning symptoms to go to the emergency department or follow up here. Pt agreeable with this plan. 2. Acute conjunctivitis of left eye, unspecified acute conjunctivitis type - ICD9: 372.00, ICD10: H10.32 - see medication orders - course and contagiousness issues discussed, including hand washing. - Instructed to call if high fever, development of periorbital redness or swelling, eye pain, visual changes, concerns or if symptoms persist. Chhaya Wade PA-C CNOV Observed: 12/04/2017 Status: COMPLETED Source: [place] 2:00 PM [facility] REPOSITORY Office Visit ([facility]) GRIS EDWARDS ([id number]) 1960 F Date Time Provider Department 12/04/17 2:00 PM CHHAYA WADE ([facility]) [facility] During your visit today, we recorded the following information about you: Temperature Pulse Respiration Blood pressure 97.4 degrees 78/minute 16/minute 120/70 Weight 122.9 kg Chhaya Wade PA-C 12/04/2017 4:12 PM Signed Subjective HPI Pt presents with cough and congestion for 9 days. She was seen here and placed on prednisone and tessalon. She is still having a productive cough. She also has left eye drainage for 2 days. 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 Review of Systems Constitutional: Negative for chills and fever. HENT: Positive for congestion. Eyes: Negative. Respiratory: Positive for cough and sputum production. Cardiovascular: Negative. Skin: Negative. All other systems reviewed and are negative. PAST MEDICAL HISTORY Diagnosis Date - Asthma - Breast mass, right 01/2014 - Diverticulitis - Obstructive sleep apnea - Pulmonary hypertension (HCC) - Sleep apnea Current Outpatient Prescriptions: benzonatate (TESSALON PERLES) 100 mg capsule Take 2 capsules by mouth three times daily as needed. Disp: 30 capsule Rfl: 0 lisinopril-hydrochlorothiazide (PRINZIDE,ZESTORETIC) 20-12.5 mg per tablet Take 1 tablet by mouth once daily. Disp: Rfl: mometasone-formoterol (DULERA) 200-5 mcg/actuation inhaler Inhale 2 Puffs as instructed twice daily. Disp: 1 Inhaler Rfl: 3 Omeprazole (PRILOSEC) 40 mg capsule Take 1 capsule by mouth once daily. Disp: 30 capsule Rfl: 3 COMPOUNDED PRESCRIPTION Please provide new tubing for CPAP machine. Disp: 1 Each Rfl: 0 aspirin, enteric coated (ASPIRIN, ENTERIC COATED) 81 mg EC tablet Take 81 mg by mouth once daily. Disp: Rfl: ERGOCALCIFEROL, VITAMIN D2, 50,000 unit capsule once each week. Disp: Rfl: predniSONE (DELTASONE) 20 mg tablet Take 1 tablet by mouth twice daily for 5 days. (Patient not taking: Reported on 12/04/2017 ) Disp: 10 tablet Rfl: 0 loratadine (CLARITIN) 10 mg tablet Take 1 tablet by mouth once daily as needed. FOR ALLERGY SYMPTOMS (Patient not taking: Reported on 11/29/2017 ) Disp: Rfl: montelukast (SINGULAIR) 10 mg tablet Take 1 tablet by mouth daily at bedtime. (Patient not taking: Reported on 11/29/2017 ) Disp: 30 tablet Rfl: 3 albuterol HFA (PROAIR HFA) 90 mcg/actuation inhaler 2 Puffs every 4 hours as needed. Take as directed (Patient not taking: Reported on 11/29/2017 ) Disp: 1 Inhaler Rfl: 3 No current facility-administered medications for this visit. PAST SURGICAL HISTORY Procedure Laterality Date - COLONOSCOPY AND POLYPECTOMY 2013 Dr. Muller - MAMMOTOME BIOPSY RIGHT 02/11/2013 - TOTAL KNEE REPLACEMENT 07/20/11 Knee replacement, total bilateral FAMILY HISTORY Problem Relation Age of Onset - Thyroid Mother - Diabetes Maternal Grandmother - Stroke Maternal Grandmother - Diabetes Maternal Grandfather - Stroke Maternal Grandfather - Heart Father - Stroke Father - Stroke Paternal Grandfather - Colon Cancer Sister Social History Substance Use Topics - Smoking status: Never Smoker - Smokeless tobacco: Never Used Comment: father smoked cigars in childhood home. - Alcohol use No BP 120/70 Pulse 78 Temp 36.3 ?C (97.4 ?F) (Tympanic) Resp 16 Wt 122.9 kg (271 lb) SpO2 95% BMI 47.30 kg/m? Objective Physical Exam Constitutional: She is oriented to person, place, and time and well-developed, well-nourished, and in no distress. HENT: Head: Normocephalic and atraumatic. Right Ear: Tympanic membrane, external ear and ear canal normal. Left Ear: Tympanic membrane, external ear and ear canal normal. Nose: Mucosal edema and rhinorrhea present. Mouth/Throat: Uvula is midline, oropharynx is clear and moist and mucous membranes are normal. Hoarse voice Eyes: Lids are normal. Lids are everted and swept, no foreign bodies found. Pt has clear discharge from left conjunctiva, mild erythema and swelling. No FB. No signs of orbital or periorbital cellulitis. Cardiovascular: Normal rate, regular rhythm and normal heart sounds. Pulmonary/Chest: Effort normal and breath sounds normal. No respiratory distress. She has no wheezes. She has no rales. Neurological: She is alert and oriented to person, place, and time. Skin: Skin is warm. No rash noted. Psychiatric: Affect and judgment normal. Nursing note and vitals reviewed. ASSESSMENT/PLAN: 1. Acute bronchitis, unspecified organism - ICD9: 466.0, ICD10: J20.9 (primary diagnosis) Will treat with zpak. She has tessalon still at home. Pt in no distress. Discussed with patient concerning symptoms to go to the emergency department or follow up here. Pt agreeable with this plan. 2. Acute conjunctivitis of left eye, unspecified acute conjunctivitis type - ICD9: 372.00, ICD10: H10.32 - see medication orders - course and contagiousness issues discussed, including hand washing. - Instructed to call if high fever, development of periorbital redness or swelling, eye pain, visual changes, concerns or if symptoms persist. Chhaya Wade PA-C Referring Provider: SELF [200] Allergies As of Date: 12/04/2017 Noted Allergy Reaction LATEX 02/20/2017 2 - Rash TRICLOSAN (BULK) 08/26/2013 4 - Hives Date Reviewed: 12/04/2017 Reviewed by: Deepti Cortes Ma - Fully Assessed Reason for Visit: Chest Congestion [236] Cmt: cough seen on 11/29 finished prednisone today, left eye discharge x 2 days Primary Visit Diagnosis:Acute bronchitis, unspecified organism [J20.9] Other Visit Diagnosis:Acute conjunctivitis of left eye, unspecified acute conjunctivitis type [H10.32] Order(s):azithromycin (ZITHROMAX Z-SEBASTIAN) 250 mg tabletTake 2 tablets day one, then, 1 tablet daily until gone.Disp: 1 PackageRfl: 0 albuterol HFA (PROAIR HFA) 90 mcg/actuation inhalerInhale 2 Puffs as instructed every 6 hours as needed.Disp: 1 InhalerRfl: 0 trimethoprim-polymyxin eye drops (POLYTRIM) ophthalmic solutionUse 1 Drop in the left eye every 4 hours.Disp: 1 BottleRfl: 0 Prescriptions as of 12/04/2017 Sig: BENZONATATE 100 MG CAPSULE Take 2 capsules by mouth thre* LISINOPRIL 20 MG-HYDROCHLOROT* Take 1 tablet by mouth once d* MOMETASONE-FORMOTEROL HFA 200* Inhale 2 Puffs as instructed * OMEPRAZOLE 40 MG CAPSULE,RICHI* Take 1 capsule by mouth once * COMPOUNDED PRESCRIPTION Please provide new tubing for* ASPIRIN 81 MG TABLET,DELAYED * Take 81 mg by mouth once tommy* ERGOCALCIFEROL (VITAMIN D2) 5* once each week. AZITHROMYCIN 250 MG TABLET Take 2 tablets day one, then,* ALBUTEROL SULFATE HFA 90 MCG/* Inhale 2 Puffs as instructed * POLYMYXIN B SULFATE 10,000 UN* Use 1 Drop in the left eye ev* PREDNISONE 20 MG TABLET Take 1 tablet by mouth twice * Patient not taking: Reported on 12/04/2017 LORATADINE 10 MG TABLET Take 1 tablet by mouth once d* Patient not taking: Reported on 11/29/2017 MONTELUKAST 10 MG TABLET Take 1 tablet by mouth daily * Patient not taking: Reported on 11/29/2017 ALBUTEROL SULFATE HFA 90 MCG/* 2 Puffs every 4 hours as need* Patient not taking: Reported on 11/29/2017 Problem List As Of Date 12/04/2017 Noted Resolved Knee pain, bilateral [M25.561, M25.562] INVALID FOR*07/24/2011 Degenerative arthritis of knee [M17.10] INVALID FOR*07/24/2011 Tachycardia [R00.0] INVALID FOR*07/24/2011 Anemia associated with acute blood loss [D62] INVALID FOR*07/24/2011 Osteoarthritis (arthritis due to wear and tear *INVALID FOR* S/P total knee replacement using cement [Z96.65*INVALID FOR* Breast mass [N63.0] INVALID FOR* Trochanteric bursitis [M70.60] INVALID FOR* Obesity, Class III, BMI >= 40 (morbid obesity) *INVALID FOR* Asthma [J45.909] Obstructive sleep apnea [G47.33] Prescriptions ordered this encounter Disp Refills Start End AZITHROMYCIN 250 MG TABLET 1 Pa* 0 12/04/2017 12/09/2017 Sig: Take 2 tablets day one, then, 1 tablet daily until gone. ALBUTEROL SULFATE HFA 90 MCG/ACTUATI* 1 In* 0 12/04/2017 Route: INHALATION Sig: Inhale 2 Puffs as instructed every 6 hours as needed. POLYMYXIN B SULFATE 10,000 UNIT-TRIM* 1 Richie* 0 12/04/2017 Route: LEFT EYE Sig: Use 1 Drop in the left eye every 4 hours. Encounter Status:Closed by CHHAYA WADE PA-C on 12/04/17 PROGRESS Observed: 11/29/2017 Status: COMPLETED Source: [place] 11:[address] [facility] [place] REPOSITORY O ID: [id number] Author: Chhaya Wade (Pa) Service: (none) Author Type: Physician News Specialist Type: Progress Notes Filed: 11/29/2017 3:02 PM Note Text: Subjective HPI Pt presents with cough and congestion for 3 days. She has had some wheezing off and on, denies chest pain. She has been coughing up mucous. She does have asthma. She is not a smoker. She tried to get into her regular doctor but he is on vacation. No fever or chills. No sore throat or ear pain. No diarrhea or vomiting. Review of Systems Constitutional: Negative for chills and fever. HENT: Positive for congestion. Respiratory: Positive for cough, sputum production and wheezing. All other systems reviewed and are negative. PAST MEDICAL HISTORY Diagnosis Date - Asthma - Breast mass, right 01/2014 - Diverticulitis - Obstructive sleep apnea - Pulmonary hypertension (HCC) - Sleep apnea Current Outpatient Prescriptions: lisinopril-hydrochlorothiazide (PRINZIDE,ZESTORETIC) 20-12.5 mg per tablet Take 1 tablet by mouth once daily. Disp: Rfl: mometasone-formoterol (DULERA) 200-5 mcg/actuation inhaler Inhale 2 Puffs as instructed twice daily. Disp: 1 Inhaler Rfl: 3 Omeprazole (PRILOSEC) 40 mg capsule Take 1 capsule by mouth once daily. Disp: 30 capsule Rfl: 3 COMPOUNDED PRESCRIPTION Please provide new tubing for CPAP machine. Disp: 1 Each Rfl: 0 ERGOCALCIFEROL, VITAMIN D2, 50,000 unit capsule once each week. Disp: Rfl: predniSONE (DELTASONE) 20 mg tablet Take 1 tablet by mouth twice daily for 5 days. Disp: 10 tablet Rfl: 0 benzonatate (TESSALON PERLES) 100 mg capsule Take 2 capsules by mouth three times daily as needed. Disp: 30 capsule Rfl: 0 loratadine (CLARITIN) 10 mg tablet Take 1 tablet by mouth once daily as needed. FOR ALLERGY SYMPTOMS (Patient not taking: Reported on 11/29/2017 ) Disp: Rfl: montelukast (SINGULAIR) 10 mg tablet Take 1 tablet by mouth daily at bedtime. (Patient not taking: Reported on 11/29/2017 ) Disp: 30 tablet Rfl: 3 aspirin, enteric coated (ASPIRIN, ENTERIC COATED) 81 mg EC tablet Take 81 mg by mouth once daily. Disp: Rfl: albuterol HFA (PROAIR HFA) 90 mcg/actuation inhaler 2 Puffs every 4 hours as needed. Take as directed (Patient not taking: Reported on 11/29/2017 ) Disp: 1 Inhaler Rfl: 3 No current facility-administered medications for this visit. PAST SURGICAL HISTORY Procedure Laterality Date - COLONOSCOPY AND POLYPECTOMY 2013 Dr. Muller - MAMMOTOME BIOPSY RIGHT 02/11/2013 - TOTAL KNEE REPLACEMENT 07/20/11 Knee replacement, total bilateral FAMILY HISTORY Problem Relation Age of Onset - Thyroid Mother - Diabetes Maternal Grandmother - Stroke Maternal Grandmother - Diabetes Maternal Grandfather - Stroke Maternal Grandfather - Heart Father - Stroke Father - Stroke Paternal Grandfather - Colon Cancer Sister Social History Substance Use Topics - Smoking status: Never Smoker - Smokeless tobacco: Never Used Comment: father smoked cigars in childhood home. - Alcohol use No BP 126/68 Pulse 71 Temp 36.6 ?C (97.8 ?F) Resp 18 Wt 121.1 kg (267 lb) SpO2 97% BMI 46.61 kg/m? Objective Physical Exam Constitutional: She is oriented to person, place, and time and well-developed, well-nourished, and in no distress. HENT: Head: Normocephalic and atraumatic. Right Ear: Tympanic membrane, external ear and ear canal normal. Left Ear: Tympanic membrane, external ear and ear canal normal. Nose: Mucosal edema and rhinorrhea present. Mouth/Throat: Uvula is midline, oropharynx is clear and moist and mucous membranes are normal. Cardiovascular: Normal rate, regular rhythm and normal heart sounds. Pulmonary/Chest: Effort normal and breath sounds normal. Lungs clear Neurological: She is alert and oriented to person, place, and time. Skin: Skin is warm and dry. No rash noted. Psychiatric: Affect and judgment normal. Nursing note and vitals reviewed. ASSESSMENT/PLAN: 1. Viral URI - ICD9: 465.9, ICD10: J06.9 - Discussed viral etiology and rationale for treatment. - Prednisone and tessalon give. While taking prednisone patient was informed not to take any nsaids. - Symptomatic treatment with prn analgesia - Supportive care with fluids and rest - Follow up in one week if symptoms persist or sooner if worsening of symptoms GILL Reyes Observed: 11/29/2017 Status: COMPLETED Source: [place] 11:30 AM [facility] REPOSITORY Office Visit ([facility]) GRIS EDWARDS ([id number]) 1960 F Date Time Provider Department 11/29/17 11:30 AM CHHAYA WADE (PA) [facility] During your visit today, we recorded the following information about you: Temperature Pulse Respiration Blood pressure 97.8 degrees 71/minute 18/minute 126/68 Weight 121.1 kg Chhaya Wade PA-C 11/29/2017 3:02 PM Signed Subjective HPI Pt presents with cough and congestion for 3 days. She has had some wheezing off and on, denies chest pain. She has been coughing up mucous. She does have asthma. She is not a smoker. She tried to get into her regular doctor but he is on vacation. No fever or chills. No sore throat or ear pain. No diarrhea or vomiting. Review of Systems Constitutional: Negative for chills and fever. HENT: Positive for congestion. Respiratory: Positive for cough, sputum production and wheezing. All other systems reviewed and are negative. PAST MEDICAL HISTORY Diagnosis Date - Asthma - Breast mass, right 01/2014 - Diverticulitis - Obstructive sleep apnea - Pulmonary hypertension (HCC) - Sleep apnea Current Outpatient Prescriptions: lisinopril-hydrochlorothiazide (PRINZIDE,ZESTORETIC) 20-12.5 mg per tablet Take 1 tablet by mouth once daily. Disp: Rfl: mometasone-formoterol (DULERA) 200-5 mcg/actuation inhaler Inhale 2 Puffs as instructed twice daily. Disp: 1 Inhaler Rfl: 3 Omeprazole (PRILOSEC) 40 mg capsule Take 1 capsule by mouth once daily. Disp: 30 capsule Rfl: 3 COMPOUNDED PRESCRIPTION Please provide new tubing for CPAP machine. Disp: 1 Each Rfl: 0 ERGOCALCIFEROL, VITAMIN D2, 50,000 unit capsule once each week. Disp: Rfl: predniSONE (DELTASONE) 20 mg tablet Take 1 tablet by mouth twice daily for 5 days. Disp: 10 tablet Rfl: 0 benzonatate (TESSALON PERLES) 100 mg capsule Take 2 capsules by mouth three times daily as needed. Disp: 30 capsule Rfl: 0 loratadine (CLARITIN) 10 mg tablet Take 1 tablet by mouth once daily as needed. FOR ALLERGY SYMPTOMS (Patient not taking: Reported on 11/29/2017 ) Disp: Rfl: montelukast (SINGULAIR) 10 mg tablet Take 1 tablet by mouth daily at bedtime. (Patient not taking: Reported on 11/29/2017 ) Disp: 30 tablet Rfl: 3 aspirin, enteric coated (ASPIRIN, ENTERIC COATED) 81 mg EC tablet Take 81 mg by mouth once daily. Disp: Rfl: albuterol HFA (PROAIR HFA) 90 mcg/actuation inhaler 2 Puffs every 4 hours as needed. Take as directed (Patient not taking: Reported on 11/29/2017 ) Disp: 1 Inhaler Rfl: 3 No current facility-administered medications for this visit. PAST SURGICAL HISTORY Procedure Laterality Date - COLONOSCOPY AND POLYPECTOMY 2013 Dr. Muller - MAMMOTOME BIOPSY RIGHT 02/11/2013 - TOTAL KNEE REPLACEMENT 07/20/11 Knee replacement, total bilateral FAMILY HISTORY Problem Relation Age of Onset - Thyroid Mother - Diabetes Maternal Grandmother - Stroke Maternal Grandmother - Diabetes Maternal Grandfather - Stroke Maternal Grandfather - Heart Father - Stroke Father - Stroke Paternal Grandfather - Colon Cancer Sister Social History Substance Use Topics - Smoking status: Never Smoker - Smokeless tobacco: Never Used Comment: father smoked cigars in childhood home. - Alcohol use No BP 126/68 Pulse 71 Temp 36.6 ?C (97.8 ?F) Resp 18 Wt 121.1 kg (267 lb) SpO2 97% BMI 46.61 kg/m? Objective Physical Exam Constitutional: She is oriented to person, place, and time and well-developed, well-nourished, and in no distress. HENT: Head: Normocephalic and atraumatic. Right Ear: Tympanic membrane, external ear and ear canal normal. Left Ear: Tympanic membrane, external ear and ear canal normal. Nose: Mucosal edema and rhinorrhea present. Mouth/Throat: Uvula is midline, oropharynx is clear and moist and mucous membranes are normal. Cardiovascular: Normal rate, regular rhythm and normal heart sounds. Pulmonary/Chest: Effort normal and breath sounds normal. Lungs clear Neurological: She is alert and oriented to person, place, and time. Skin: Skin is warm and dry. No rash noted. Psychiatric: Affect and judgment normal. Nursing note and vitals reviewed. ASSESSMENT/PLAN: 1. Viral URI - ICD9: 465.9, ICD10: J06.9 - Discussed viral etiology and rationale for treatment. - Prednisone and tessalon give. While taking prednisone patient was informed not to take any nsaids. - Symptomatic treatment with prn analgesia - Supportive care with fluids and rest - Follow up in one week if symptoms persist or sooner if worsening of symptoms Chhaya Wade PA-C Referring Provider: SELF [200] Allergies As of Date: 11/29/2017 Noted Allergy Reaction LATEX 02/20/2017 2 - Rash TRICLOSAN (BULK) 08/26/2013 4 - Hives Date Reviewed: 11/29/2017 Reviewed by: Elida Escamilla LPN - Fully Assessed Reason for Visit: Cough [28] Cmt: x Several days productive cough, chest congestion, chest tightness and difficulty breathing Primary Visit Diagnosis:Viral URI [J06.9] Order(s):predniSONE (DELTASONE) 20 mg tabletTake 1 tablet by mouth twice daily for 5 days.Disp: 10 tabletRfl: 0 benzonatate (TESSALON PERLES) 100 mg capsuleTake 2 capsules by mouth three times daily as needed.Disp: 30 capsuleRfl: 0 Prescriptions as of 11/29/2017 Sig: LISINOPRIL 20 MG-HYDROCHLOROT* Take 1 tablet by mouth once d* MOMETASONE-FORMOTEROL HFA 200* Inhale 2 Puffs as instructed * OMEPRAZOLE 40 MG CAPSULE,RICHI* Take 1 capsule by mouth once * COMPOUNDED PRESCRIPTION Please provide new tubing for* ERGOCALCIFEROL (VITAMIN D2) 5* once each week. PREDNISONE 20 MG TABLET Take 1 tablet by mouth twice * BENZONATATE 100 MG CAPSULE Take 2 capsules by mouth thre* LORATADINE 10 MG TABLET Take 1 tablet by mouth once d* Patient not taking: Reported on 11/29/2017 MONTELUKAST 10 MG TABLET Take 1 tablet by mouth daily * Patient not taking: Reported on 11/29/2017 ASPIRIN 81 MG TABLET,DELAYED * Take 81 mg by mouth once tommy* ALBUTEROL SULFATE HFA 90 MCG/* 2 Puffs every 4 hours as need* Patient not taking: Reported on 11/29/2017 Problem List As Of Date 11/29/2017 Noted Resolved Knee pain, bilateral [M25.561, M25.562] INVALID FOR*07/24/2011 Degenerative arthritis of knee [M17.10] INVALID FOR*07/24/2011 Tachycardia [R00.0] INVALID FOR*07/24/2011 Anemia associated with acute blood loss [D62] INVALID FOR*07/24/2011 Osteoarthritis (arthritis due to wear and tear *INVALID FOR* S/P total knee replacement using cement [Z96.65*INVALID FOR* Breast mass [N63.0] INVALID FOR* Trochanteric bursitis [M70.60] INVALID FOR* Obesity, Class III, BMI >= 40 (morbid obesity) *INVALID FOR* Asthma [J45.909] Obstructive sleep apnea [G47.33] Prescriptions ordered this encounter Disp Refills Start End PREDNISONE 20 MG TABLET 10 t* 0 11/29/2017 12/04/2017 Route: ORAL Sig: Take 1 tablet by mouth twice daily for 5 days. BENZONATATE 100 MG CAPSULE 30 c* 0 11/29/2017 Route: ORAL Sig: Take 2 capsules by mouth three times daily as needed. Encounter Status:Closed by CHHAYA WADE PA-C on 11/29/17 FOOT MIN 3 VIEWS Observed: 10/12/2017 Status: F Source: [place] 2:59 PM [facility] REPOSITORY [facility] Imaging Services [address] [place] [id number] Foot min 3 Views MR#: [id number] Acct: [id number] Name: GRIS EDWARDS Rep #: [id number] : 1960 F 57 From: Fernando Roman MD PCP: John Suazo MD, Chi Status: REG CLI Study: Foot min 3 Views Date of Exam: 10/12/17 Exam# [id number] Ordering Dr: John Suazo MD STUDY: X-RAY - RIGHT FOOT CLINICAL: Female, 57 years old. Pain. TECHNIQUE: 3 view(s) of the foot. COMPARISON: None. FINDINGS: There is a plantar calcaneal spur. Mild degenerative changes of the visualized subtalar, talonavicular, calcaneocuboid, tarsal and tarsometatarsal articulations. Normal metatarsi. There is degenerative arthrosis of the metatarsophalangeal joint of the hallux . Normal tibial and fibular sesamoid bones. Normal interphalangeal joint of the great toe. Normal phalanges of the great toe. Normal second through fifth metatarsophalangeal joints. Normal interphalangeal joints and phalanges of the lesser toes. The soft tissue structures are unremarkable. There is no demonstrated fracture. RAD/Foot min 3 Views IMPRESSION: No acute fracture or dislocation. Electronically Signed: Fernando Roman MD at 15:20 EDT , Service support , CC: John Suazo MD Grounds Foreman: Signed VITAMIN D,25 HYDROXY Collected: 08/21/2017 Status: F Source: [place] 10:07 AM [facility] REPOSITORY TYPE CODE TESTS RESULT OUT OF RANGE REFERENCE UNITS LAB L506.1000 29.95-100.01 ng/mL Normal Vitamin D 49.5 25-OH Result Comment: Vitamin D 25(OH) Status Range Deficiency <20 ng/mL (50nmol/L) Insuffciency 20 - 30 ng/mL (50 - 75 nmol/L) Sufficiency 30 - 100 ng/mL (75 - 250 nmol/L) Toxicity >100 ng/mL (>250 nmol/L) Performed By: #### L506.1000 #### [facility] [place] [place], [address] CBC W/DIFF, AUTOMATED Collected: 08/21/2017 Status: F Source: [place] 10:07 AM [facility] REPOSITORY TYPE CODE TESTS RESULT OUT OF RANGE REFERENCE UNITS LAB L100.1000 4.4-11.0 K/mm3 High WBC 11.1 LAB L100.1200 4.2-5.4 M/mm3 Normal RBC 4.56 LAB L100.1300 12.0-15.0 g/dl Normal HGB 14.0 LAB L100.1400 37-47 % Normal HCT 41.3 LAB L100.1500 81-99 fL Normal MCV 90.6 LAB L100.1600 27.0-32.0 pg Normal MCH 30.7 LAB L100.1700 32-36 g/gl Normal MCHC 33.9 LAB L100.1810 11.6-14.6 % Normal RDW CV 13.7 LAB L100.1820 35.1-43.9 fl High RDW SD 45.4 LAB L100.1900 150-450 K/mm3 Normal PLT 280 LAB L100.2000 6.2-12.0 fl Normal MPV 10.7 LAB L100.2100 47-70 % High NEUT% 71.7 LAB L100.2200 19-41 % Low LY% 17.7 LAB L100.2300 0-10 % Normal MONO% 8.2 LAB L100.2400 0-5 % Normal EO% 1.4 LAB L100.2500 0-1 % Normal BASO% 0.5 LAB L100.2550 0.0-0.9 % Normal IM GRAN % 0.500 Result Comment: IG% - Immature Granulocytes (promyelocytes, myelocytes and metamyelocytes) > 1% indicates that a LEFT SHIFT is Present. LAB L100.2620 2.0-7.7 X10 3/uL High Absolute Neut 7.9 LAB L100.2720 0.83-4.51 X10 3/ul Normal Absolute Lymph 1.96 Performed By: #### L100.0100 #### [facility] [address] [place], [address] COMPREHENSIVE METABOLIC Collected: 08/21/2017 Status: F Source: [facility] 10:07 AM [facility] REPOSITORY TYPE CODE TESTS RESULT OUT OF RANGE REFERENCE UNITS LAB L501.0100 74-106 mg/dL Normal GLU 97 Result Comment: Please note revised GLUCOSE reference range effective 2017. LAB L501.1000 7-18 mg/dL Normal BUN 12 LAB L501.1100 0.55-1.02 mg/dL Normal CREAT,SERUM 0.64 Result Comment: The validity of the calculated GFR AND GFRAA in patients over 70 years has not been determined. Clinical correlation is essential. LAB L501.1110 >60 mL/min Normal EST GFR 100 Result Comment: Non- GFR Calc LAB L501.1115 >60 mL/min Normal EST GFR - AA 121 Result Comment: GFR Calc LAB L501.1300 10-20 RATIO Normal BUN/CRE 18.6 LAB L501.1500 6.4-8.2 g/dL T Normal PROT 7.2 LAB L501.1800 3.2-5.0 g/dL Normal ALB 3.9 LAB L501.1950 2.2-4.2 g/dL Normal GLOB 3.3 LAB L501.2000 0.9-2.4 RATIO Normal A/G 1.2 LAB L501.2200 8.5-10.1 mg/dL CA Normal 8.9 LAB L501.4100 15-37 U/L Normal AST 21 LAB L501.4305 45-117 U/L Normal ALK P 107 LAB L501.4405 13-56 U/L Normal ALT 38 LAB L501.4600 0.20-1.00 mg/dL T Normal BILI 0.60 LAB L501.5300 136-145 mmol/L NA Normal 139 LAB L501.5600 3.5-5.1 mmol/L K Normal 4.2 LAB L501.5900 98-107 mmol/L CL Normal 105 LAB L501.6100 21.0-32.0 mmol/L Normal CO2 26.0 LAB L501.6200 5-15 Normal GAP 8 Performed By: #### L500.4050, L501.9520 #### [facility] [address] [facility] [address] THYROID STIM HORMONE Collected: 08/21/2017 Status: F Source: [place] ([facility]) 10:07 AM [facility] REPOSITORY TYPE CODE TESTS RESULT OUT OF RANGE REFERENCE UNITS LAB L501.9520 0.358-3.74 uIU/mL Normal TSH 1.32 Performed By: #### L500.4050, L501.9520 #### [facility] [address] [facility] [id number] HEPATITIS C ANTIBODIES Collected: 08/21/2017 Status: F Source: [place] 10:07 AM [facility] REPOSITORY TYPE CODE TESTS RESULT OUT OF RANGE REFERENCE UNITS LAB L3100.0650 0.0-0.9 s/co ratio Normal HEP C AB <0.1 Result Comment: Negative: < 0.8 Indeterminate: 0.8 - 0.9 Positive: > 0.9 The CDC recommends that a positive HCV antibody result be followed up with a HCV Nucleic Acid Amplification test ([id number]). Performed at: - [facility] [id number] Heat Set Operator: Sammy Raygoza PhD, Phone: [phone] Performed By: #### L3100.0625 #### [facility] (refer to report for specific site) refer to report for address and phone number PROGRESS Observed: 08/21/2017 Status: COMPLETED Source: [place] 8:[address] [facility] RE[facility] HNO ID: [id number] Author: Hortensia Juarez Service: (none) Author Type: Physician News Specialist Type: Progress Notes Filed: 08/24/2017 11:09 AM Note Text: [facility] [place], 08/21/17: INTERVAL HISTORY: The patient is here for follow up of asthma. PMH: RAKAN on CPAP, diastolic heart failure, pulmonary HTN, allergic rhinitis. Never smoker. Since the last Pulmonary Clinic visit, the patient has required no ED visit(s), no hospitalization(s), for management of exacerbations; and no prednisone was required for the management of exacerbation. The patient has been compliant with therapy recommended at the last visit. No cough. No hemoptysis. No pleuritic chest pain. No wheezing. Exertional dyspnea if I am really active. States she has increased exercise tolerance she starting Dulera. No nocturnal awakenings. Consistently wears CPAP with sleep. States her tubing has a leak. She reports increased daytime fatigue. Not requiring rescue bronchodilator use since starting Dulera. No disruption in taste or voice associated with use of inhaled corticosteroid. No tremor, palpitations, or muscle cramping associated with bronchodilator inhalation. PMH: Reviewed with patient today. Updated. FAMH: Reviewed with patient today. No changes. SOCH: No changes. ROS: General: Generally feels tired during the day. Appetite good. Weight stable. Eyes, Ears, nose, throat: Post nasal drip, rhinorrhea. No purulent nasal discharge, epistaxis, hoarseness. Vision stable. Cardiac: No angina, edema, orthopnea. GI: Heartburn symptoms since Omeprazole ran out. No dysphagia, diarrhea. Uro/MAIL OFFICER: No dysuria, hesitancy, nocturia. Musculoskeletal: No pain. Neuro: No headache, focal weakness, tremor. Skin: No rash. Otherwise negative. Immunization History Administered Date(s) Administered Influenza Seasonal Inj Age 3+ 02/20/2017 Allergies were verified and updated, and medications were reconciled with the patient at this visit. PHYSICAL EXAMINATION: BP 132/84 Pulse 79 Resp 15 Wt 267 lb (121.1kg) SpO2 99% Body mass index is 46.61 kg/(m2). Gen: No acute distress. Cooperative with examination. ENT: Sclerae clear. EOMI. Nares clear. Oral hygeine and dentition good. Pharynx clear. No sign of oral thrush. Resp: No stridor, accessory respiratory muscle use, supra- sternal or intercostal retractions. No crackles, wheezes, rubs. CV: Regular rythm. Heart tones normal. Radial pulses normal. Abd: Non distended. MSK: No kyphoscoliosis, joint deformities. Ext: Warm and well perfused. No clubbing, cyanosis, edema. Skin: Color normal. Texture normal. No rash, eczema, urticaria. Neuro: Mental status normal. Affect normal. Muscle tone normal. No tremor. DATA REVIEW: Exhaled nitric oxide (Nidia), 18: 14 (normal < 25). ASTHMA CONTROL TEST Date: 08/21/2017 1. In the last 4 weeks, how much of the time did your asthma keep you from getting as much done at work or home that you wanted to do? Some of the time (3) 2. In the last 4 weeks, how often have you had shortness of breath? Once a day (2) 3. In the last 4 weeks, how often did your asthma symptoms (wheezing, coughing, shortness of breath, chest tightness or pain) wake you up at night or earlier than usual? Once a week (3) 4. In the last 4 weeks, how often have you used your rescue inhaler or nebulizer medication (such as Albuterol, Proventil, Ventolin, Maxair, Xoponex, or Primatene Mist)? Not at all (5) 5. In the last 4 weeks, how would you rate your asthma control? Poorly controlled (2) Total: less than 15 IMPRESSION and RECOMMENDATIONS: 1. Mild persistent asthma, unspecified whether complicated - Continue Dulera 2 puffs twice a day. Rinse mouth after each use to help prevent thrush. - Pro-air 2 puffs every 4 hours as needed for wheezing and/or shortness of breath. - Allergy symptoms despite previous negative allergy testing and Nidia of 14 today. - Start Singulair 1 tablet nightly. - Continue Claritin daily. ?2. RAKAN (obstructive sleep apnea) - Persistent daytime sleepiness and fatigue with faulty equipment. - Following with Dr. Mulligan regarding repeating sleep titration study ? 3. Pulmonary hypertension due to left heart disease Right heart catheter done on August 2014 showed Mean pulmonary artery pressure 55 was pulmonary capillary wedge pressure 23 with elevated left ventricular end-diastolic pressure. 4. GERD -Resume Omeprazole daily. Sent to pharmacy. - I reviewed the pathophysiology of asthma, NIH guidelines for evaluation and management, and mechanisms of action and side effects of medical therapy (ICS, bronchodilators) with the patient. I addressed the questions of the patient, and she expressed understanding and acceptance of my answers. Hortensia Juarez PA-C [address] [phone] CNOV Observed: 08/21/2017 Status: COMPLETED Source: [place] 8:30 AM [facility] REPOSITORY Office Visit (PULMWS) GRIS EDWARDS ([id number]) 1960 F Date Time Provider Department 08/21/17 8:30 AM HORTENSIA JUAREZ [facility]UL[facility]WS During your visit today, we recorded the following information about you: Pulse Respiration Blood pressure Weight 79/minute 15/minute 132/84 121.1 kg Hortensia Juarez PA-C 08/24/2017 11:09 AM Signed [facility], 08/21/17: INTERVAL HISTORY: The patient is here for follow up of asthma. PMH: RAKAN on CPAP, diastolic heart failure, pulmonary HTN, allergic rhinitis. Never smoker. Since the last Pulmonary Clinic visit, the patient has required no ED visit(s), no hospitalization(s), for management of exacerbations; and no prednisone was required for the management of exacerbation. The patient has been compliant with therapy recommended at the last visit. No cough. No hemoptysis. No pleuritic chest pain. No wheezing. Exertional dyspnea ANDquot;if I am really activeANDquot;. States she has increased exercise tolerance she starting Dulera. No nocturnal awakenings. Consistently wears CPAP with sleep. States her tubing has a leak. She reports increased daytime fatigue. Not requiring rescue bronchodilator use since starting Dulera. No disruption in taste or voice associated with use of inhaled corticosteroid. No tremor, palpitations, or muscle cramping associated with bronchodilator inhalation. PMH: Reviewed with patient today. Updated. FAMH: Reviewed with patient today. No changes. SOCH: No changes. ROS: General: Generally feels tired during the day. Appetite good. Weight stable. Eyes, Ears, nose, throat: Post nasal drip, rhinorrhea. No purulent nasal discharge, epistaxis, hoarseness. Vision stable. Cardiac: No angina, edema, orthopnea. GI: Heartburn symptoms since Omeprazole ran out. No dysphagia, diarrhea. Uro/MAIL OFFICER: No dysuria, hesitancy, nocturia. Musculoskeletal: No pain. Neuro: No headache, focal weakness, tremor. Skin: No rash. Otherwise negative. Immunization History Administered Date(s) Administered Influenza Seasonal Inj Age 3+ 02/20/2017 Allergies were verified and updated, and medications were reconciled with the patient at this visit. PHYSICAL EXAMINATION: BP 132/84 Pulse 79 Resp 15 Wt 267 lb (121.1kg) SpO2 99% Body mass index is 46.61 kg/(m2). Gen: No acute distress. Cooperative with examination. ENT: Sclerae clear. EOMI. Nares clear. Oral hygeine and dentition good. Pharynx clear. No sign of oral thrush. Resp: No stridor, accessory respiratory muscle use, supra- sternal or intercostal retractions. No crackles, wheezes, rubs. CV: Regular rythm. Heart tones normal. Radial pulses normal. Abd: Non distended. MSK: No kyphoscoliosis, joint deformities. Ext: Warm and well perfused. No clubbing, cyanosis, edema. Skin: Color normal. Texture normal. No rash, eczema, urticaria. Neuro: Mental status normal. Affect normal. Muscle tone normal. No tremor. DATA REVIEW: Exhaled nitric oxide (Nidia), 18: 14 (normal ANDlt; 25). ASTHMA CONTROL TEST Date: 08/21/2017 1. In the last 4 weeks, how much of the time did your asthma keep you from getting as much done at work or home that you wanted to do? Some of the time (3) 2. In the last 4 weeks, how often have you had shortness of breath? Once a day (2) 3. In the last 4 weeks, how often did your asthma symptoms (wheezing, coughing, shortness of breath, chest tightness or pain) wake you up at night or earlier than usual? Once a week (3) 4. In the last 4 weeks, how often have you used your rescue inhaler or nebulizer medication (such as Albuterol, Proventil, Ventolin, Maxair, Xoponex, or Primatene Mist)? Not at all (5) 5. In the last 4 weeks, how would you rate your asthma control? Poorly controlled (2) Total: less than 15 IMPRESSION and RECOMMENDATIONS: 1. Mild persistent asthma, unspecified whether complicated - Continue Dulera 2 puffs twice a day. Rinse mouth after each use to help prevent thrush. - Pro-air 2 puffs every 4 hours as needed for wheezing and/or shortness of breath. - Allergy symptoms despite previous negative allergy testing and Nidia of 14 today. - Start Singulair 1 tablet nightly. - Continue Claritin daily. ?2. RAKAN (obstructive sleep apnea) - Persistent daytime sleepiness and fatigue with faulty equipment. - Following with Dr. Mulligan regarding repeating sleep titration study ? 3. Pulmonary hypertension due to left heart disease Right heart catheter done on August 2014 showed Mean pulmonary artery pressure 55 was pulmonary capillary wedge pressure 23 with elevated left ventricular end-diastolic pressure. 4. GERD -Resume Omeprazole daily. Sent to pharmacy. - I reviewed the pathophysiology of asthma, NIH guidelines for evaluation and management, and mechanisms of action and side effects of medical therapy (ICS, bronchodilators) with the patient. I addressed the questions of the patient, and she expressed understanding and acceptance of my answers. Hortensia Juarez PA-C [facility] [place] [facility] [address] [place] [address] Hortensia Juarez PA-C 08/21/2017 9:11 AM Signed 1. Mild persistent asthma, unspecified whether complicated - Continue Dulera 2 puffs twice a day. Rinse mouth after each use to help prevent thrush. - Pro-air 2 puffs every 4 hours as needed for wheezing and/or shortness of breath. - Allergy symptoms despite previous negative allergy testing and Nidia of 14 today. - Start Singulair 1 tablet nightly. - Continue Claritin daily. ?2. RAKAN (obstructive sleep apnea) - Persistent daytime sleepiness and fatigue with faulty equipment. - Following with Dr. Mulligan regarding repeating sleep titration study ? 3. Pulmonary hypertension due to left heart disease Right heart catheter done on August 2014 showed Mean pulmonary artery pressure 55 was pulmonary capillary wedge pressure 23 with elevated left ventricular end-diastolic pressure. 4. GERD -Resume Omeprazole daily. Sent to pharmacy. Referring Provider: RACHAEL METZ [[id number]] Allergies As of Date: 08/21/2017 Noted Allergy Reaction LATEX 02/20/2017 2 - Rash TRICLOSAN (BULK) 08/26/2013 4 - Hives Date Reviewed: 08/21/2017 Reviewed by: Hortensia Juarez - Fully Assessed Reason for Visit: Established Patient [175] Cmt: COPD Primary Visit Diagnosis:Mild persistent asthma, unspecified whether complicated [J45.30] Other Visit Diagnoses:Obstructive sleep apnea [G47.33] Seasonal allergic rhinitis, unspecified trigger [J30.2] Gastroesophageal reflux disease, esophagitis presence not specified [K21.9] Order(s):loratadine (CLARITIN) 10 mg tabletTake 1 tablet by mouth once daily as needed. FOR ALLERGY SYMPTOMSDisp: Rfl: NITRIC OXIDE, EXHALED [[id number]] Order #: [id number] FUTURE montelukast (SINGULAIR) 10 mg tabletTake 1 tablet by mouth daily at bedtime.Disp: 30 tabletRfl: 3 mometasone-formoterol (DULERA) 200-5 mcg/actuation inhalerInhale 2 Puffs as instructed twice daily.Disp: 1 InhalerRfl: 3 Omeprazole (PRILOSEC) 40 mg capsuleTake 1 capsule by mouth once daily.Disp: 30 capsuleRfl: 3 COMPOUNDED PRESCRIPTIONPlease provide new tubing for CPAP machine.Disp: 1 EachRfl: 0 Prescriptions as of 08/21/2017 Sig: LORATADINE 10 MG TABLET Take 1 tablet by mouth once d* LISINOPRIL 20 MG-HYDROCHLOROT* Take 1 tablet by mouth once d* MOMETASONE-FORMOTEROL HFA 200* Inhale 2 Puffs as instructed * OMEPRAZOLE 40 MG CAPSULE,RICHI* Take 1 capsule by mouth once * ASPIRIN 81 MG TABLET,DELAYED * Take 81 mg by mouth once tommy* ALBUTEROL SULFATE HFA 90 MCG/* 2 Puffs every 4 hours as need* ERGOCALCIFEROL (VITAMIN D2) 5* once each week. MONTELUKAST 10 MG TABLET Take 1 tablet by mouth daily * COMPOUNDED PRESCRIPTION Please provide new tubing for* Medication notes this encounter LISINOPRIL 20 MG-HYDROCHLOROTHIAZIDE 12.5 MG TABLET >> Hortensia Juarez PA-C 08/21/2017 8:47 AM >> HORTENSIA JUAREZ Aug 21, 2017 8:47 AM Received from: External Pharmacy OMEPRAZOLE 40 MG CAPSULE,DELAYED RELEASE >> Hortensia Juarez PA-C 08/21/2017 8:47 AM >> HORTENSIA JUAREZ Aug 21, 2017 8:47 AM Currently not taking Problem List As Of Date 08/21/2017 Noted Resolved Knee pain, bilateral [M25.561, M25.562] INVALID FOR*07/24/2011 Degenerative arthritis of knee [M17.10] INVALID FOR*07/24/2011 Tachycardia [R00.0] INVALID FOR*07/24/2011 Anemia associated with acute blood loss [D62] INVALID FOR*07/24/2011 Osteoarthritis (arthritis due to wear and tear *INVALID FOR* S/P total knee replacement using cement [Z96.65*INVALID FOR* Breast mass [N63.0] INVALID FOR* Trochanteric bursitis [M70.60] INVALID FOR* Obesity, Class III, BMI >= 40 (morbid obesity) *INVALID FOR* Asthma [J45.909] Obstructive sleep apnea [G47.33] Other instructions from your clinician: 1. Mild persistent asthma, unspecified whether complicated - Continue Dulera 2 puffs twice a day. Rinse mouth after each use to help prevent thrush. - Pro-air 2 puffs every 4 hours as needed for wheezing and/or shortness of breath. - Allergy symptoms despite previous negative allergy testing and Nidia of 14 today. - Start Singulair 1 tablet nightly. - Continue Claritin daily. ?2. RAKAN (obstructive sleep apnea) - Persistent daytime sleepiness and fatigue with faulty equipment. - Following with Dr. Mulligan regarding repeating sleep titration study ? 3. Pulmonary hypertension due to left heart disease Right heart catheter done on August 2014 showed Mean pulmonary artery pressure 55 was pulmonary capillary wedge pressure 23 with elevated left ventricular end-diastolic pressure. 4. GERD -Resume Omeprazole daily. Sent to pharmacy. Prescriptions ordered this encounter Disp Refills Start End LORATADINE 10 MG TABLET 08/21/2017 Class: Med Update Route: ORAL Sig: Take 1 tablet by mouth once daily as needed. FOR ALLERGY SYMPTOMS MONTELUKAST 10 MG TABLET 30 t* 3 08/21/2017 Route: ORAL Sig: Take 1 tablet by mouth daily at bedtime. MOMETASONE-FORMOTEROL HFA 200 MCG-5 * 1 In* 3 08/21/2017 Route: INHALATION Sig: Inhale 2 Puffs as instructed twice daily. OMEPRAZOLE 40 MG CAPSULE,DELAYED REL* 30 c* 3 08/21/2017 Route: ORAL Sig: Take 1 capsule by mouth once daily. COMPOUNDED PRESCRIPTION 1 Ea* 0 08/21/2017 Class: Print RX Sig: Please provide new tubing for CPAP machine. Medications Discontinued During This Encounter fluticasone (FLOVENT) 220 mcg/actuat* 08/21/2017 Class: Historical Med Route: INHALATION Sig: Inhale 1 Puff as instructed twice daily. Disc: Reason for discontinue is not on file. MOMETASONE FUROATE (ASMANEX HFA INHA* 08/21/2017 Class: Historical Med Route: INHALATION Sig: Inhale as instructed. Disc: Reason for discontinue is not on file. mometasone-formoterol (DULERA) 200-5* 1 In* 3 03/20/2017 08/21/2017 Route: INHALATION Sig: Inhale 2 Puffs as instructed twice daily. Disc: Reason for discontinue is not on file. Omeprazole (PRILOSEC) 40 mg capsule 08/21/2017 Class: Historical Med Route: ORAL Sig: Take 40 mg by mouth once daily. Disc: Reason for discontinue is not on file. Disposition: Return in about 3 months (around 11/20/2017). Follow-up and Disposition History Recorded Encounter Status:Closed by HORTENSIA JUAREZ on 08/24/17 Observed: 06/12/2017 Status: F Source: [place] RESPIRATORY PANEL 9:14 PM [facility] MOLECULAR REPOSITORY RP PANEL ADENOVIRUS Not Detected HUMAN METAPHNEUMO Not Detected INFLUENZA A Not Detected INFLUENZA A (SUBTYPE H1) Not Detected INFLUENZA A (SUBTYPE H3) Not Detected INFLUENZA B Not Detected PARAINFLUENZA 1 Not Detected PARAINFLUENZA 2 Not Detected PARAINFLUENZA 3 Not Detected PARAINFLUENZA 4 Not Detected RHINOVIRUS Not Detected RSV A Not Detected RSV B Not Detected NAAT METHOD Testing was performed using nucleic acid amplification Performed By: #### M100.638 #### [facility] [address] [place], [address] CHEST PA AND LATERAL Observed: 06/12/2017 Status: F Source: [place] 6:44 PM [facility] HOSPITAL REPOSITORY [facility] Imaging Services [address] [place] [address] Chest PA and Lateral MR#: [id number] Acct: [id number] Name: GRIS EDWARDS Rep #: [id number] : 1960 F 57 From: Yehuda Mckinney DO PCP: John Suazo MD, Chi Status: REG CLI Study: Chest PA and Lateral Date of Exam: 06/12/17 Exam# [id number] Ordering Dr: John Suazo MD STUDY: X-RAY CHEST REASON FOR EXAM: Female, 57 years old. Fever TECHNIQUE: Frontal and lateral views COMPARISON: March 09, 2017 FINDINGS: The lungs are clear and expanded. There is no demonstrated pleural abnormality. Normal size heart. Normal mediastinum and gregorio. Normal visualized pulmonary arteries. Calcified aortic arch and descending thoracic aorta. Degenerative changes of the thoracic spine. Normal visualized ribs, clavicles, and shoulders. There is no demonstrated abnormality of the visualized soft tissue structures of the upper abdomen. RAD/Chest PA and Lateral IMPRESSION: Normal x-ray examination of the chest. Electronically Signed: Yehuda Mckinney DO at 21:20 EST Tel [phone], Service support , CC: John Suazo MD Grounds Foreman: Signed ABDOMEN/PELVIS WITH Observed: 06/12/2017 Status: F Source: [place] CONTRAST 6:41 PM [facility] REPOSITORY [facility] Imaging Services [address] [place] [address] Abdomen/Pelvis WITH Contrast MR#: [id number] Acct: [id number] Name: GRIS EDWARDS Rep #: [id number] : 1960 F 57 From: Yehuda Mckinney DO PCP: John Suazo MD, Chi Status: REG CLI Study: Abdomen/Pelvis WITH Contrast Date of Exam: 06/12/17 Exam# [id number] Ordering Dr: John Suazo MD STUDY: CT ABDOMEN AND PELVIS WITH CONTRAST REASON FOR EXAM: Female, 57 years old. Left lower quadrant pain RADIATION DOSAGE (If Supplied By Facility): CTDIvol = ( 17.07 ) mGy, DLP = ( 1343.02 ) mGycm TECHNIQUE: Transaxial images were obtained from the dome of the diaphragm to the symphysis pubis without oral contrast. 100ML ml of Isovue 300 contrast was administered. Sagittal and coronal images were reconstructed. Individualized dose optimization techniques were used for this CT. COMPARISON: None. FINDINGS: The visualized lung bases are unremarkable. The visualized portions of the heart are within normal limits. Normal liver. Normal gallbladder and extrahepatic biliary system. Normal spleen. Normal pancreas. Normal bilateral adrenal glands. Normal right kidney. Normal left kidney. Normal visualized stomach. Normal small intestine. Focal inflammation of the distal descending colon possibly due to focal colitis or diverticulitis. . The appendix is visualized and appears normal. Normal abdominal aorta. Normal inferior vena cava. Normal retroperitoneum. Normal urinary bladder. Prominent right ovary is noted. Correlate with ultrasound of the pelvis if clinically needed. Normal abdominal wall. Normal osseous structures. CT/Abdomen/Pelvis WITH Contrast IMPRESSION: Focal colitis or diverticulitis of the distal descending colon. Electronically Signed: Yehuda Mckinney DO at 22:50 EST Tel [phone], Service support , CC: John Suazo MD Grounds Foreman: Signed COMPREHENSIVE METABOLIC Collected: 06/12/2017 Status: F Source: [place] 6:10 PM [facility] REPOSITORY TYPE CODE TESTS RESULT OUT OF RANGE REFERENCE UNITS LAB L501.0100 74-106 mg/dL High GLU 107 Result Comment: Fasting Glucose result from 100 to 125 mg/dL suggests IMPAIRED HOMEOSTASIS per A.D.A. criteria. Please note revised GLUCOSE reference range effective 2017. LAB L501.1000 7-18 mg/dL Normal BUN 11 LAB L501.1100 0.55-1.02 mg/dL Low CREAT,SERUM 0.53 Result Comment: The validity of the calculated GFR AND GFRAA in patients over 70 years has not been determined. Clinical correlation is essential. LAB L501.1110 >60 mL/min Normal EST GFR 126 Result Comment: Non- GFR Calc LAB L501.1115 >60 mL/min Normal EST GFR - AA 153 Result Comment: GFR Calc LAB L501.1300 10-20 RATIO High BUN/CRE 20.8 LAB L501.1500 6.4-8.2 g/dL T Normal PROT 7.3 LAB L501.1800 3.2-5.0 g/dL Normal ALB 3.7 LAB L501.1950 2.2-4.2 g/dL Normal GLOB 3.6 LAB L501.2000 0.9-2.4 RATIO Normal A/G 1.0 LAB L501.2200 8.5-10.1 mg/dL CA Normal 9.0 LAB L501.4100 15-37 U/L Normal AST 22 LAB L501.4305 45-117 U/L Normal ALK P 100 LAB L501.4405 13-56 U/L Normal ALT 44 Result Comment: Please note revised ALT reference range effective 2017. LAB L501.4600 0.20-1.00 mg/dL Normal T BILI 0.60 LAB L501.5300 136-145 mmol/L Normal NA 137 LAB L501.5600 3.5-5.1 mmol/L Normal K 4.1 LAB L501.5900 98-107 mmol/L Normal CL 105 LAB L501.6100 21.0-32.0 mmol/L Normal CO2 23.0 LAB L501.6200 5-15 Normal GAP 9 Performed By: #### L500.4050 #### [facility] [address] [place], [address] MONOTEST Collected: 06/12/2017 Status: F Source: [place] 6:10 PM [facility] REPOSITORY TYPE CODE TESTS RESULT OUT OF RANGE REFERENCE UNITS LAB L700.5700 Negative Normal MONO Negative Performed By: #### L700.5500 #### [facility] [address] [place], [address] CBC W/DIFF, AUTOMATED Collected: 06/12/2017 Status: C Source: [place] 6:10 PM [facility] REPOSITORY TYPE CODE TESTS RESULT OUT OF RANGE REFERENCE UNITS LAB L100.1000 4.4-11.0 K/mm3 High WBC 19.8 LAB L100.1200 4.2-5.4 M/mm3 Normal RBC 4.63 LAB L100.1300 12.0-15.0 g/dl Normal HGB 14.0 LAB L100.1400 37-47 % Normal HCT 40.9 LAB L100.1500 81-99 fL Normal MCV 88.3 LAB L100.1600 27.0-32.0 pg Normal MCH 30.2 LAB L100.1700 32-36 g/gl Normal MCHC 34.2 LAB L100.1810 11.6-14.6 % Normal RDW CV 13.8 LAB L100.1820 35.1-43.9 fl Normal RDW SD 43.9 LAB L100.1900 150-450 K/mm3 Normal PLT 276 LAB L100.2000 6.2-12.0 fl Normal MPV 10.2 LAB L100.2100 47-70 % High NEUT% 78.0 LAB L100.2200 19-41 % Low LY% 12.6 LAB L100.2300 0-10 % Normal MONO% 8.4 LAB L100.2400 0-5 % Normal EO% 0.3 LAB L100.2500 0-1 % Normal BASO% 0.2 LAB L100.2550 0.0-0.9 % Normal IM GRAN % 0.500 Result Comment: IG% - Immature Granulocytes (promyelocytes, myelocytes and metamyelocytes) > 1% indicates that a LEFT SHIFT is Present. LAB L100.2620 2.0-7.7 X10 3/uL High Absolute Neut 15.4 LAB L100.2720 0.83-4.51 X10 3/ul Normal Absolute Lymph 2.49 LAB L100.4500 Normal SMEAR COMMENT SEE COMMENT Result Comment: MONOCYTOSIS NOTED LAB L100.4800 Normal RARE TOXIC GRAN LAB L100.5500 ADEQ Normal PLT EST ADEQUATE LAB L100.7300 Normal RARE ANISO LAB L100.9900 Normal PATH REV Reviewed Result Comment: Neutrophilic leukocytosis. Clinical correlation suggested. Sven Ray D.O. 06/13/17 AMENDED REPORT 06/13/17 1553 PATH REV previously reported as: August richelle Performed By: #### L100.0100 #### [facility] [address] [facility]. [place], [place], [address] Observed: 06/12/2017 Status: F Source: [place] CULTURE, BLOOD (WB) 6:10 PM [facility] REPOSITORY BC No growth in 5 days. Performed By: #### M200.1000 #### [facility] [address] [facility] [place], [address] Observed: 06/12/2017 Status: F Source: [place] CULTURE, SPUTUM 12:00 AM [facility] REPOSITORY Gram Stain Acceptable Specimen? Yes (<25 Epithelial cells per/lpf) Gram Stain 1+ White Blood Cells 4+ Gram positive cocci 2+ Gram variable francisca Rare Epithelial cells Resp. Culture Mixed normal respiratory bety. No Streptococcus pneumoniae, beta-hemolytic Streptococcus or Staphylococcus aureus isolated. Performed By: #### M100.0800 #### [facility] [address] [place], [address] ALLERGIES ALLERGIES DATE TYPE / CODE NAME / CODE REACTION SEVERITY SOURCE 03/09/2017 Drug triclosan/[id number] Unknown Unknown [facility] Allergy/416 3179(RXNORM) Hospital 060575(SNOM Repository ED CT) 03/09/2017 Drug latex/[id number] Unknown Unknown [facility] Allergy/416 (RXNORM) Hospital 816952(SNOM Repository ED CT) 02/20/2017 DRUG LATEX RASH [facility] INGREDI/[address] [place] 825954(SNOM Repository ED CT) 08/26/2013 DRUG/[id number] TRICLOSAN (BULK) HIVES [facility] 003(SNOMED [facility] [place] [facility]) Repository ENCOUNTERS ENCOUNTERS ADMIT/DISCHARGE ACCOUNT ADMITTING ENCOUNTER LOCATION SOURCE NUMBER CLASS 05/03/2018/05/03/[id number] [place] Repository 04/19/2018 [id number] Ambulatory [facility] Other [place] Repository 04/19/2018/04/19/20 [id number] Ambulatory [address] Repository 04/10/2018 [id number] [facility] ing:PSN Repository 03/01/2018 [id number] [facility] ing:POLAB3 Repository 12/04/2017/12/06/[id number] Repository 11/29/2017/12/01/[id number] Repository 10/12/2017 [id number] [facility] ing:RAD.FUTUR Repository E 08/21/2017 [id number] [facility] ing:POLAB3 Repository 08/21/2017/08/24/[id number] Repository 08/21/2017/08/25/[id number] Repository 06/12/2017 [id number] [facility] ing:CT Repository PAYERS PAYERS ENCOUNTER GUARANTOR PAYER SUBSCRIBER SOURCE 04/10/2018 GRIS Primary [place]IS [place] [id number] Insurance:ANTHEMPolic JADOSHDOB: Community JESSIKA y [place]: [id number] [id number] Repository 83[address]Apr: (330) Date:2281-11-81WH [phone] () [id number] [address]DP: 04/10/2018 Secondary NOT GIVENUNK [place] Insurance:SELF PAY [facility] Number: Effective Repository Date:2018-04-10 03/01/2018 Gris Primary Gris [place] [id number] Insurance:ANTHEMPolic JadoshDOB: Community Jessika y Number: [id number] [id number] Repository [address]Xjb: (330) Date:6387-83-74HS [phone] () 105[place] [address]NX: 03/01/2018 Secondary NOT GIVENUNK [place] Insurance:SELF PAY [facility] Number: Effective Repository Date:2018-03-01 10/12/2017 Gris Primary [place]is [place] [id number] Insurance:ANTHEMPolic JadoshDOB: Community Jessika y Number: [id number], [place] [id number] Repository [address]Nbi: (330) Date:1092-02-33BZ [phone] () [id number] [place] [address]GY: 10/12/2017 Secondary NOT GIVENUNK [place] Insurance:SELF PAY [facility] Number: Effective Repository Date:2017-10-12 08/21/2017 Gris Primary Gris [place] [id number] Insurance:ANTHEMPolic JadoshDOB: Community Jessika y Number: [id number], [place] [id number] Repository [address]Eir: (330) Date:8263-72-65JI [phone] () [id number], [place] [address]UX: 08/21/2017 Secondary NOT GIVENUNK [place] Insurance:SELF PAY [facility] Effective Repository Date:2017-08-21 06/12/2017 Gris Primary Gris [place] [id number] [facility] JashD[facility]: [facility] Irene y Number: [id number], [place] [id number] Repository [address]Spp: (330) Date:5251-00-78BV [phone] () [id number], [place] [address]HC: 06/12/2017 Secondary NOT GIVENUNK [place] Insurance:SELF PAY [facility] Number: Effective Repository Date:2017-06-12
== END ==
PROVIDERS: Family Provider Family Medicine Geriatric Medicine; PCP Family Medicine Geriatric Medicine; Referring Provider Family Medicine Geriatric Medicine; Visit Provider Family Medicine Geriatric Medicine
DX: R68.83 Chills (without fever) (principal)
CPT/HCPCS: 87633

== ENCOUNTER → 2018-07-24 17:04 | Outpatient (CLI) | payer BC, SELFPAY | PROVIDERS: Family Provider Family Medicine Geriatric Medicine; PCP Family Medicine Geriatric Medicine; Referring Provider Family Medicine Geriatric Medicine; Visit Provider Family Medicine Geriatric Medicine | DX: N39.0 Urinary tract infection, site not specified (principal) | CPT/HCPCS: 87086; 87088 ==

== ENCOUNTER → 2018-08-01 17:21 | Outpatient (CLI) | payer BC, SELFPAY ==
[2017-03-09 18:10] VITALS: BMI 45.8
--- NOTE | 2018-08-01 17:34 | RAD_ITS ---
STUDY: X-RAY - ABDOMEN/PELVIS REASON FOR EXAM: Female, 58 years old. Left-sided flank pain. TECHNIQUE: Two AP supine views of the abdomen and pelvis. COMPARISON: CT abdomen and pelvis dated June 12, 2017. FINDINGS: There is an unremarkable bowel gas pattern. There is no demonstrated free abdominal air. There is no obvious organomegaly, mass or dilated bowel. No pathologic calcifications are visualized. Normal soft tissue structures. Normal visualized osseous structures. RAD/Abdomen Single View IMPRESSION: No radiographic evidence of acute intra-abdominal disease. Electronically Signed: Katia Post MD at 18:31 EDT , Service support ,
--- NOTE | 2018-08-01 17:34 | RAD_ITS ---
STUDY: X-RAY - LUMBAR SPINE REASON FOR EXAM: Female, 58 years old. Low back pain. TECHNIQUE: 3 view(s) of the lumbar spine were obtained. COMPARISON: CT of the abdomen and pelvis dated June 12, 2017. FINDINGS: There is an exaggerated lumbar lordosis. There is no substantial scoliosis. There is a normal alignment of the vertebrae. There is generalized demineralization of the vertebral bodies. There is multi-level degenerative disc disease with multi-level disc space narrowing. There is no demonstrated fracture. The soft tissue structures are unremarkable. RAD/Lumbar Spine 2 or 3 Views IMPRESSION: Multilevel degenerative disc disease and degenerative arthropathy of the lumbar spine. Electronically Signed: Katia Post MD at 18:35 EDT , Service support ,
--- NOTE | 2018-08-01 17:35 | RAD_ITS ---
STUDY: X-RAY - THORACIC SPINE REASON FOR EXAM: Female, 58 years old. Back pain. TECHNIQUE: 3 view(s) of the thoracic spine were obtained. COMPARISON: None. FINDINGS: Normal kyphosis of the thoracic spine. There is no substantial scoliosis. There is multilevel endplate spondylosis of the thoracic vertebrae. There appears to be sequela diffuse idiopathic sclerosing hyperostosis. There is multilevel disc space narrowing of the thoracic spine. The soft tissue structures are unremarkable. RAD/Thoracic Spine 2 Views IMPRESSION: Moderately severe multilevel spondylosis, diffuse idiopathic sclerosing hyperostosis, and degenerative disc disease of the thoracic spine. Electronically Signed: Katia Post MD at 18:33 EDT , Service support ,
[2018-08-01 17:40] LABS: Absolute Lymphocyte Count 2.48 X10^3/ul (0.83-4.51); Absolute Neutrophil Count 12.3 X10^3/uL (2.0-7.7); Basophil# 0.04 X10^3/uL; Basophil% 0.2 % (0-1); Eosinophil# 0.24 X10^3/uL; Eosinophils% 1.5 % (0-5); Hematocrit 39.6 % (37-47); Hemoglobin 13.3 g/dl (12.0-15.0); Lymphocyte # 2.48 X10^3/ul (4.0); Lymphocyte % 15.2 % (19-41); Mean Corp Hgb Conc 33.6 g/gl (32-36); Mean Corpuscular Hgb 30.2 pg (27.0-32.0); Mean Corpuscular Volume 89.8 fL (81-99); Mean Platelet Vol. 10.2 fl (6.2-12.0); Monocyte# 1.26 X10^3/uL; Monocyte% 7.7 % (0-10); Neutrophil # 12.25 X10^3/uL (2.7-7.7); Neutrophil % 75.1 % (47-70); Platelet Count 298 K/mm3 (150-450); RBC Distribution Width CV 13.4 % (11.6-14.6); Red Blood Count 4.41 M/mm3 (4.2-5.4); White Blood Count 16.3 K/mm3 (4.4-11.0)
[2018-08-01 18:00] LABS: POSITIVE COUNT NO; POSITIVE DIFFERENTIAL NO; POSITIVE MORPHOLOGY NO
[2018-08-01 18:02] LABS: ALB/GLOB Ratio 1.1 RATIO (0.9-2.4); AST(SGOT) 22 U/L (15-37); Alanine Aminotransfer ALT/SGPT 41 U/L (13-56); Albumin, Serum 3.9 g/dL (3.2-5.0); Alkaline Phosphatase 95 U/L (45-117); Anion Gap 5 (5-15); BUN 13 mg/dL (7-18); BUN/Creat Ratio 17.1 RATIO (10-20); Calcium,Total 9.3 mg/dL (8.5-10.1); Chloride 106 mmol/L (98-107); Creatinine, Serum 0.76 mg/dL (0.55-1.02); EST Glomerular Filtration Rate 82 mL/min (>60); Est Glom Filt Rate - Afr Amer 100 mL/min (>60); Globulin 3.4 g/dL (2.2-4.2); Glucose 102 mg/dL (74-106); Potassium 3.6 mmol/L (3.5-5.1); Protein, Total 7.3 g/dL (6.4-8.2); Sodium Level 137 mmol/L (136-145); Thyroid Stim Hormone (TSH) 1.11 uIU/mL (0.358-3.74)
== END ==
LOC: POLAB3 17:21 → RAD 17:33
PROVIDERS: Family Provider Family Medicine Geriatric Medicine; PCP Family Medicine Geriatric Medicine; Referring Provider Family Medicine Geriatric Medicine; Visit Provider Family Medicine Geriatric Medicine
DX: M54.9 Dorsalgia, unspecified (principal); R10.9 Unspecified abdominal pain
CPT/HCPCS: 36415; 72070; 72100; 74018; 80053; 84443; 85025

== ENCOUNTER → 2018-08-02 16:55 | Outpatient (CLI) | payer BC, SELFPAY ==
[2017-03-09 18:10] VITALS: BMI 45.8
== END ==
PROVIDERS: Family Provider Family Medicine Geriatric Medicine; PCP Family Medicine Geriatric Medicine; Referring Provider Family Medicine Geriatric Medicine; Visit Provider Family Medicine Geriatric Medicine
DX: R50.9 Fever, unspecified (principal)
CPT/HCPCS: 87633

== ENCOUNTER → 2018-11-07 09:53 | Outpatient (CLI) | payer BC, SELFPAY ==
[2017-03-09 18:10] VITALS: BMI 45.8
--- NOTE | 2018-11-07 12:18 | RAD_ITS ---
STUDY: X-RAY - THORACIC SPINE REASON FOR EXAM: Female, 58 years old. Upper back pain. TECHNIQUE: 3 view(s) of the thoracic spine were obtained. COMPARISON: August 01, 2018. FINDINGS: Normal kyphosis of the thoracic spine. There is no substantial scoliosis. There is demineralization of the thoracic spine with endplate spondylosis. There is multilevel disc space narrowing of the thoracic spine. There is no evidence of acute fracture or loss of vertebral axial height. The soft tissue structures are unremarkable. RAD/Thoracic Spine 3 Views IMPRESSION: Stable degenerative changes of the lumbar spine. Electronically Signed: Gabe Holliday DO at 16:35 EDT Tel [phone], Service support ,
--- NOTE | 2018-11-07 12:18 | RAD_ITS ---
STUDY: X-RAY - ABDOMEN/PELVIS REASON FOR EXAM: Female, 58 years old. Right lower abdominal pain. TECHNIQUE: Two AP supine views of the abdomen and pelvis. COMPARISON: August 01, 2018. FINDINGS: Normal visualized lung bases. There is an unremarkable bowel gas pattern. No small bowel dilatation or evidence of obstruction. There is no demonstrated free abdominal air. The visualized liver, spleen and kidneys are grossly normal in size and morphology. Normal soft tissue structures. No visualized osseous changes. RAD/Abdomen Single View IMPRESSION: No acute intra-abdominal process or major interval change. Electronically Signed: Gabe Holliday DO at 16:34 EDT Tel [phone], Service support ,
[2018-11-07 12:48] LABS: Absolute Lymphocyte Count 2.22 X10^3/ul (0.83-4.51); Absolute Neutrophil Count 9.9 X10^3/uL (2.0-7.7); Basophil# 0.03 X10^3/uL; Basophil% 0.2 % (0-1); Eosinophil# 0.23 X10^3/uL; Eosinophils% 1.7 % (0-5); Hematocrit 42.2 % (37-47); Lymphocyte # 2.22 X10^3/ul (4.0); Lymphocyte % 16.4 % (19-41); Mean Corp Hgb Conc 33.2 g/gl (32-36); Mean Corpuscular Hgb 29.5 pg (27.0-32.0); Mean Platelet Vol. 10.8 fl (6.2-12.0); Monocyte# 1.07 X10^3/uL; Monocyte% 7.9 % (0-10); Neutrophil # 9.93 X10^3/uL (2.7-7.7); Neutrophil % 73.4 % (47-70); Platelet Count 307 K/mm3 (150-450); Red Blood Count 4.74 M/mm3 (4.2-5.4); White Blood Count 13.5 K/mm3 (4.4-11.0)
[2018-11-07 12:54] LABS: POSITIVE COUNT NO; POSITIVE DIFFERENTIAL NO; POSITIVE MORPHOLOGY NO
[2018-11-07 13:03] LABS: ALB/GLOB Ratio 1.1 RATIO (0.9-2.4); AST(SGOT) 24 U/L (15-37); Alanine Aminotransfer ALT/SGPT 50 U/L (13-56); Albumin, Serum 3.9 g/dL (3.2-5.0); Alkaline Phosphatase 97 U/L (45-117); Anion Gap 8 (5-15); BUN 13 mg/dL (7-18); BUN/Creat Ratio 18.5 RATIO (10-20); Calcium,Total 9.1 mg/dL (8.5-10.1); Chloride 104 mmol/L (98-107); EST Glomerular Filtration Rate 90 mL/min (>60); Est Glom Filt Rate - Afr Amer 109 mL/min (>60); Globulin 3.4 g/dL (2.2-4.2); Glucose 91 mg/dL (74-106); Potassium 4.4 mmol/L (3.5-5.1); Protein, Total 7.3 g/dL (6.4-8.2); Sodium Level 138 mmol/L (136-145); Thyroid Stim Hormone (TSH) 1.62 uIU/mL (0.358-3.74)
[2018-11-07 13:05] LABS: Vitamin D,25 Hydroxy 52.4 ng/mL (29.95-100.01)
== END ==
PROVIDERS: Family Provider Family Medicine Geriatric Medicine; PCP Family Medicine Geriatric Medicine; Referring Provider Family Medicine Geriatric Medicine; Visit Provider Family Medicine Geriatric Medicine
DX: I10 Essential (primary) hypertension (principal); E55.9 Vitamin D deficiency, unspecified; M54.6 Pain in thoracic spine; R10.9 Unspecified abdominal pain
CPT/HCPCS: 36415; 72072; 74018; 80053; 82306; 84443; 85025

== ENCOUNTER → 2019-01-04 12:28 | Outpatient (CLI) | payer BC, SELFPAY ==
[2019-01-04 12:54] LABS: Absolute Lymphocyte Count 0.92 X10^3/uL (0.83-4.51); Basophil# 0.04 X10^3/uL; Basophil% 0.7 % (0-1); Eosinophil# 0.02 X10^3/uL; Eosinophils% 0.3 % (0-5); Hematocrit 45.3 % (37-47); Hemoglobin 15.3 g/dL (12.0-15.0); Lymphocyte # 0.92 X10^3/ul (4.0); Mean Corp Hgb Conc 33.8 g/dL (32-36); Mean Corpuscular Hgb 30.2 pg (27.0-32.0); Mean Corpuscular Volume 89.3 fL (81-99); Mean Platelet Vol. 9.9 fl (6.2-12.0); Monocyte% 12.2 % (0-10); NRBC Flagged by Analyzer 0 % (0-5); Neutrophil # 4.02 X10^3/uL (2.7-7.7); Neutrophil % 69.9 % (47-70); Platelet Count 216 K/mm3 (150-450); RBC Distribution Width CV 13.2 % (11.6-14.6); RBC Distribution Width SD 43.1 fl (35.1-43.9); Red Blood Count 5.07 M/mm3 (4.2-5.4); White Blood Count 5.8 K/mm3 (4.4-11.0)
[2019-01-04 13:33] LABS: AST(SGOT) 29 U/L (15-37); Alanine Aminotransfer ALT/SGPT 39 U/L (13-56); Albumin, Serum 3.5 g/dL (3.2-5.0); Alkaline Phosphatase 90 U/L (45-117); Anion Gap 2 (5-15); BUN 14 mg/dL (7-18); BUN/Creat Ratio 18.5 RATIO (10-20); Calcium,Total 8.6 mg/dL (8.5-10.1); Chloride 105 mmol/L (98-107); Creatinine, Serum 0.76 mg/dL (0.55-1.02); EST Glomerular Filtration Rate 83 mL/min (>60); Est Glom Filt Rate - Afr Amer 101 mL/min (>60); Globulin 3.6 g/dL (2.2-4.2); Glucose 108 mg/dL (74-106); Potassium 4.2 mmol/L (3.5-5.1); Protein, Total 7.1 g/dL (6.4-8.2); Sodium Level 137 mmol/L (136-145)
== END ==
PROVIDERS: Family Provider Family Medicine Geriatric Medicine; PCP Family Medicine Geriatric Medicine; Referring Provider Family Medicine Geriatric Medicine; Visit Provider Family Medicine Geriatric Medicine
DX: R10.9 Unspecified abdominal pain (principal); R68.83 Chills (without fever); R19.7 Diarrhea, unspecified
CPT/HCPCS: 36415; 80053; 82274; 83630; 85025; 87177; 87209; 87493; 87506; 87633

== ENCOUNTER → 2019-01-07 12:59 | Outpatient (CLI) | payer BC, SELFPAY ==
--- NOTE | 2019-01-07 13:02 | CT_ITS ---
STUDY: CT ABDOMEN AND PELVIS WITH CONTRAST REASON FOR EXAM: Female, 58 years old. Abdominal pain and diarrhea for 3 days. RADIATION DOSAGE (If Supplied By Facility): CTDIvol = ( 14.74 ) mGy, DLP = ( 1117.73 ) mGycm TECHNIQUE: Transaxial images were obtained from the dome of the diaphragm to the symphysis pubis without oral contrast. 100 IV/Oral Isovue 300 was administered. Sagittal and coronal images were reconstructed. Individualized dose optimization techniques were used for this CT. COMPARISON: 06/12/2017. FINDINGS: The visualized lung bases are unremarkable. The visualized portions of the heart are within normal limits. Normal liver. Normal gallbladder and extrahepatic biliary system. Normal spleen. Normal pancreas. Normal bilateral adrenal glands. Normal right kidney. Normal left kidney. Normal visualized stomach. Normal small intestine. There are multiple colonic diverticula consistent with diverticulosis. There is focal fat infiltration around the distal transverse colon at the splenic flexure, consistent with acute diverticulitis (axial images 38-45).. There is also focal fat infiltration adjacent to the middle segment of the descending colon (axial images 61-66). There is no associated abscess, free intraperitoneal air, or ascites. The appendix is seen on axial images 73-79 and it appears normal. There is mild atherosclerotic calcification of the abdominal aorta, without a demonstrated aneurysm. Normal inferior vena cava. Normal retroperitoneum. Normal urinary bladder. There is a leiomyomatous uterus. Normal abdominal wall. There are multilevel degenerative changes of the visualized lumbar spine. CT/Abdomen/Pelvis WITH Contrast IMPRESSION: Mild acute diverticulitis of the distal transverse colon in the region of the the splenic flexure, as well as very mild acute diverticulitis of the mid descending colon. No associated abscess or free intraperitoneal air. Leiomyomatous uterus. Electronically Signed: Gilbert Grimes MD at 7:21 EDT , Service support ,
== END ==
PROVIDERS: Family Provider Family Medicine Geriatric Medicine; PCP Family Medicine Geriatric Medicine; Referring Provider Family Medicine Geriatric Medicine; Visit Provider Family Medicine Geriatric Medicine
DX: R10.9 Unspecified abdominal pain (principal)
CPT/HCPCS: 74177; Q9967

== ENCOUNTER → 2019-04-11 07:00 | Outpatient (CLI) | payer BC, SELFPAY | PROVIDERS: Family Provider Family Medicine Geriatric Medicine; PCP Family Medicine Geriatric Medicine; Visit Provider Psychiatry & Neurology Psychiatry | DX: G47.33 Obstructive sleep apnea (adult) (pediatric) (principal) ==

== ENCOUNTER 2020-10-09 16:55 | Emergency (ER) | payer BC, SELFPAY ==
[2020-10-09 16:55] VITALS: BP 152/82; PULSE 110; RESP 18; TEMP 36.7; O2SAT 96; BMI 44.6
[2020-10-09 18:02] LABS: Absolute Lymphocyte Count 2.66 X10^3/uL (0.83-4.51); Absolute Neutrophil Count 8.1 X10^3/uL (2.0-7.7); Basophil# 0.05 X10^3/uL; Basophil% 0.4 % (0-1); Eosinophils% 1.6 % (0-5); Hematocrit 38.1 % (37-47); Hemoglobin 12.5 g/dL (12.0-15.0); Lymphocyte # 2.66 X10^3/ul (0.83-4.51); Lymphocyte % 21.8 % (19-41); Mean Corp Hgb Conc 32.8 g/dL (32-36); Mean Corpuscular Hgb 29.9 pg (27.0-32.0); Mean Corpuscular Volume 91.1 fL (81-99); Mean Platelet Vol. 9.8 fl (6.2-12.0); Monocyte# 1.06 X10^3/uL; Monocyte% 8.7 % (0-10); NRBC Flagged by Analyzer 0 % (0-5); Neutrophil # 8.13 X10^3/uL (2.7-7.7); Neutrophil % 66.7 % (47-70); Platelet Count 300 K/mm3 (150-450); RBC Distribution Width CV 12.6 % (11.6-14.6); RBC Distribution Width SD 41.6 fl (35.1-43.9); Red Blood Count 4.18 M/mm3 (4.2-5.4); White Blood Count 12.2 K/mm3 (4.4-11.0)
[2020-10-09 18:14] LABS: Anion Gap 5 (5-15); BUN 14 mg/dL (7-18); BUN/Creat Ratio 14.6 RATIO (10-20); Calcium,Total 8.7 mg/dL (8.5-10.1); Chloride 105 mmol/L (98-107); Creatinine, Serum 0.96 mg/dL (0.55-1.02); EST Glomerular Filtration Rate 63 mL/min (>60); Est Glom Filt Rate - Afr Amer 76 mL/min (>60); Estimated Creatinine Clearance 53.14 ml/min; Glucose 229 mg/dL (74-106); Potassium 3.6 mmol/L (3.5-5.1); Sodium Level 140 mmol/L (136-145)
--- NOTE | 2020-10-09 18:31 | CT_ITS ---
STUDY: CT ABDOMEN AND PELVIS WITH CONTRAST REASON FOR EXAM: Female, 60 years old. Abdominal pain history of diverticulitis RADIATION DOSAGE (If Supplied By Facility): CTDIvol = ( 17.07 ) mGy, DLP = ( 1225.15 ) mGycm TECHNIQUE: CT images were obtained from the dome of the diaphragm to the symphysis pubis without oral contrast. Oral and amp; IV Gastrografin and amp; 100mL Isovue-300 was administered. Sagittal and coronal images were reconstructed. Individualized dose optimization techniques were used for this CT. COMPARISON: None. FINDINGS: The visualized lung bases are unremarkable. The visualized portions of the heart are within normal limits. Normal liver. Normal gallbladder and extrahepatic biliary system. Normal spleen. Normal pancreas. Normal bilateral adrenal glands. Normal right kidney. Normal left kidney. There is no intestinal obstruction. There is extensive sigmoid diverticulosis with mild focal diverticular colitis. There is no perforation or abscess. Normal abdominal aorta. Normal inferior vena cava. Normal retroperitoneum. Normal urinary bladder. Normal abdominal wall. There are degenerative changes in the lumbar spine with moderate to severe L4-L5 thecal sac stenosis. This can be evaluated in an outpatient setting with neurosurgical referral. CT/Abdomen/Pelvis WITH Contrast IMPRESSION: Mild sigmoid diverticula is, no perforation or abscess. Electronically Signed: Asif Harper MD at 20:39 EDT Tel , Service support ,
--- NOTE | 2020-10-09 18:32 | EX.ED.DYSGE1 ---
HPI History of Present Illness Chief Complaint: Abd Pain Informant: patient Onset/Context/Timing Onset: Days Context: Gradual Onset Current Severity: Moderate Maximum Severity: Moderate Narrative Narrative: Patient presents secondary to abdominal pain. Patient states that she gets diverticulitis. She will typically get pain in both the right lateral and left lower lateral abdomen. She is been having this pain recently and today developed chills. She is concerned it is now going into diverticulitis and needs antibiotics. She does have increased abdominal cramping when she has to urinate but denies actual dysuria. [facility] Medical History (Updated 10/09/20 @ 20:[address] Hortensia Moody MD) Asthma Congestive heart failure COPD (chronic obstructive pulmonary disease) Diabetes Diverticulitis Hypertension Obstructive sleep apnea Spinal stenosis Home Medications albuterol sulfate [Proair Hfa (SP)Vent Pts] 2 puff INHALATION Q6H PRN PRN 09/16/14 [History Last Taken Unknown] cyanocobalamin (vitamin B-12) 1,000 mcg PO DAILY 09/16/14 [History Last Taken Unknown] ergocalciferol (vitamin D2) [Vitamin D] 50,000 unit PO Q7D 09/16/14 [History Last Taken Unknown] loratadine [Claritin] 10 mg PO DAILY 09/16/14 [History Last Taken Unknown] Fluticasone 220 Mcg [Flovent 220 Mcg] 2 puff INHALATION BID 03/09/17 [History Last Taken Unknown] amoxicillin-pot clavulanate [Augmentin] 1 tab PO BID #20 tab 10/09/20 [Rx Last Taken Unknown] hydrocodone-acetaminophen 1 tab PO Q6H PRN 3 Days #10 tab 10/09/20 [Rx Last Taken Unknown] Allergy/AdvReac Type Severity Reaction Status Date / Time triclosan Allergy Unknown Verified 10/09/20 16:57 latex AdvReac Unknown Verified 10/09/20 16:57 Social History Smoking Status: Never smoker ROS ROS ED Constitutional Constitutional ED: Denies chills or fever(s) Eyes Eyes: Denies change in vision ENT ENT ED: Denies sore throat Cardiovascular Cardiovascular: Denies chest pain Respiratory/Chest Respiratory/Chest: Denies cough or dyspnea Gastrointestinal Gastrointestinal: Reports abdominal pain; Denies diarrhea, nausea or vomiting Genitourinary Genitourinary ED: Denies dysuria Musculoskeletal Musculoskeletal: Denies back pain Integumentary Denies rash Neurologic Neurologic: Denies headache(s) or weakness Psychiatric Psychiatric: Denies anxiety or depression Endocrine Endocrinology: Denies polydipsia or polyuria Allergic/Immunologic Allergic/Immunologic ED: Denies urticaria EXAM Physical Exam Const Vital Signs: 10/09/20 16:55 10/09/20 18:56 10/09/20 20:31 Temperature 98.1 F 98.4 F 98.6 F Temperature Source Temporal Oral Oral Pulse Rate 110 H 84 80 Respiratory Rate 18 18 16 Blood Pressure 152/82 H 156/54 H 129/57 H Blood Pressure Mean 105 88 81 Pulse Ox 96 98 98 Oxygen Delivery Method Room Air Room Air Room Air Positive well nourished and well developed General Appearance ED: well developed HEENT Reports normocephalic and head/scalp atraumatic Eyes PERRL and EOMs intact bilaterally Neck supple Chest Wall inspection of chest normal and palpation of chest normal Resp normal respiratory effort and clear to auscultation bilaterally Cardio regular rate and regular rhythm GI normal to inspection, nondistended, normoactive bowel sounds GI Narrative: Mild diffuse tenderness location. No guarding or rebound. Palpation: soft and tender Extremity normal to inspection Neuro oriented x3 and no sensory deficits noted Sensorium / Orientation: alert Motor Exam: strength 5/5 throughout Psych mental status grossly normal Skin no rashes or lesions noted MDM MDM MDM Narrative Medical decision making narrative: Patient was given morphine and Zofran for pain. Lab work and CT scan of the abdomen and pelvis is obtained. Lab Data Attestation: I reviewed the patient's lab results. Labs: Laboratory Results - last 24 hr 10/09/20 10/09/20 10/09/20 17:50 17:50 19:25 WBC 12.2 H RBC 4.18 L Hgb 12.5 Hct 38.1 MCV 91.1 MCH 29.9 MCHC 32.8 RDW Std Deviation 41.6 RDW Coeff of Gabriela 12.6 Plt Count 300 MPV 9.8 Immature Gran % (Auto) 0.800 Neut % (Auto) 66.7 Lymph % (Auto) 21.8 [place] % (Auto) 8.7 Eos % (Auto) 1.6 Baso % (Auto) 0.4 Absolute Neuts (auto) 8.1 H Absolute Lymphs (auto) 2.66 Nucleated RBC % 0 Sodium 140 Potassium 3.6 Chloride 105 Carbon Dioxide 30.0 Anion Gap 5 BUN 14 Creatinine 0.96 Estim Creat Clear Calc 53.14 Est GFR (MDRD) Af Amer 76 Est GFR (MDRD) Non-Af 63 BUN/Creatinine Ratio 14.6 Glucose 229 H Calcium 8.7 Urine Color Yellow Urine Clarity Clear Urine pH 6.5 Ur Specific [place] 1.015 Urine Protein 15 H Urine Glucose (UA) 1000 H Urine Ketones 5 H Urine Occult Blood Negative Urine Nitrite Negative Urine Bilirubin Negative Urine Urobilinogen 1 H Ur Leukocyte Esterase 25 H Urine RBC 0 SEEN Urine WBC 0 SEEN Ur Squamous Epith Cells 0-5 SEEN Urine Bacteria Not Reportable Urine Mucus 1+ Radiography Diagnostic Testing: Radiology Impression Abdomen/Pelvis CT 10/09/20 18:31 IMPRESSION: Mild sigmoid diverticula is, no perforation or abscess. Electronically Signed: Asif Harper MD at 20:39 EDT Tel , Service support , Treatment and Re-Evaluation Comments:: On repeat evaluation patient is resting comfortably. CT scan does reveal a small segment of acute diverticulitis. No perforation or abscess is noted. Patient be treated with a course of Augmentin, first dose given here. She will also be given a short course of [place] to help with pain. We did discuss potential constipating side effects and she will monitor this and continue her MiraLAX. Discharge Plan Triage Chief Complaint: Abd Pain ED Provider: Hortensia Moody Dx/Rx/DC Orders Clinical Impression: Diverticulitis Instructions: ED Diverticulitis Prescriptions: New amoxicillin-pot clavulanate [Augmentin] 875-125 mg tablet 1 tab PO BID Qty: 20 RF: 0 hydrocodone-acetaminophen 5-325 mg tablet 1 tab PO Q6H PRN (Reason: pain) 3 Days Qty: 10 RF: 0 No Action cyanocobalamin (vitamin B-12) 1,000 MCG tablet 1,000 mcg PO DAILY RF: 0 ergocalciferol (vitamin D2) [Vitamin D2] 50,000 UNIT capsule 50,000 unit PO Q7D RF: 0 albuterol sulfate [ProAir HFA] 1 PUFF inhaler 2 puff inhalation Q6H PRN PRN (Reason: Sob &/Or Wheezing) RF: 0 loratadine [Allergy Relief (loratadine)] 10 MG tablet 10 mg PO DAILY RF: 0 Fluticasone 220 Mcg [Flovent 220 Mcg] 1 INHALER inhaler 2 puff inhalation BID RF: 0 Primary Care Provider: Christina Sanchez Referrals: Christina Sanchez MD [Primary Care Provider] - 1-2 Weeks Disposition Disposition: Home, self care
[2020-10-09 18:56] VITALS: BP 156/54; PULSE 84; RESP 18; TEMP 36.9; O2SAT 98
[2020-10-09] MEDS: Ondansetron 4 MG/2 ML Vial IV (19:04)
[2020-10-09] MEDS: Morphine 4 MG/ML Syringe IV (19:04)
[2020-10-09] MEDS: 0.9% Normal Saline 1,000 ML 150 ML IV (19:04)
[2020-10-09 19:32] LABS: Red Blood Cells-Urine 0 SEEN /hpf (0-5); White Blood Cells 0 SEEN /hpf (0-5)
[2020-10-09 19:33] LABS: Color, Urine Yellow (Yellow); Glucose, Dipstick 1000 mg/dl (Normal); Ketone-Dipstick 5 mg/dl (Negative); Leukocyte Esterase-Dipstick 25 /ul (Negative); Nitrite-Dipstick Negative (Negative); Occult Blood-Urine Negative /ul (Negative); Protein-Dipstick 15 mg/dl (Negative); Specific Gravity, Urine 1.015 (1.002-1.030); Urine Bilirubin Dipstick Negative (Negative); Urine Clarity Clear (Clear); Urine Urobilinogen 1 mg/dl (Normal); Urine pH 6.5 (5.0 - 8.0)
[2020-10-09 19:47] LABS: Mucous, Urine 1+ /hpf (<or=2+); Squamous Epithelial Cells - UA 0-5 SEEN /hpf (5-10)
[2020-10-09 20:31] VITALS: BP 129/57; PULSE 80; RESP 16; TEMP 37; O2SAT 98
[2020-10-09] MEDS: Amox/Clavulanate 875 MG Tablet PO (21:04)
[2020-10-09 21:07] VITALS: BP 124/59; PULSE 84; RESP 14
== END 2020-10-09 21:07 | disposition home or self-care (01) ==
PROVIDERS: Emergency Provider Emergency Medicine; PCP Internal Medicine
DX: K57.92 Diverticulitis of intestine, part unspecified, without perforation or abscess without bleeding (principal)
CPT/HCPCS: 74177; 80048; 81001; 85025; 96361; 96374; 96375; 99285; Q9967; A4216; J2405